=== PATIENT | male | born 1990 | race Caucasian/White ===

== ENCOUNTER 2020-09-15 17:42 | Emergency (ER) | payer OTHER ==
[2020-09-15 17:48] VITALS: BP 155/114; PULSE 82; RESP 18; TEMP 97.9
--- NOTE | 2020-09-15 18:16 | ED ---
General Adult HPI - General Chief complaint: Psychiatric Symptoms Stated complaint: EPS eval Time Seen by Provider: 09/15/20 17:45 Source: patient, RN notes reviewed, old records reviewed Mode of arrival: ambulatory Limitations: no limitations - History of Present Illness Initial comments: This is a 30-year-old male presents emergency department because his mother states over the last few days she's becoming more more depressed patient however is not suicidal or homicidal. Patient states he does not want hurt himself. Mom states last night he started to hallucinate and he was concerned that people were after him. He was walking into his mother's room concerned that one of the family members may have been hurt or diarrhea. Patient states she saw remembers this but he was extremely tired so is not sure. Patient states she has been sleeping well lately. Patient states he become much more depressed now that his daughter's birthday. Was a couple of days ago and he hasn't seen an 8 months. Patient denies any physical complaints today. Patient denies headache patient denies numbness weakness. Patient denies any recent fever chills or cough. - Related Data Home Medications Medication Instructions Recorded Confirmed No Known Home Medications 09/15/20 09/15/20 Allergies Allergy/AdvReac Type Severity Reaction Status Date / Time No Known Allergies Allergy Verified 09/15/20 19:23 Review of Systems ROS Statement: Those systems with pertinent positive or pertinent negative responses have been documented in the HPI. ROS Other: All systems not noted in ROS Statement are negative. Past Medical History Additional Past Medical History / Comment(s): heart murmur History of Any Multi-Drug Resistant Organisms: None Reported Past Surgical History: No Surgical Hx Reported Past Psychological History: No Psychological Hx Reported Smoking Status: Current every day smoker Past Alcohol Use History: Occasional Past Drug Use History: Marijuana General Exam - General Exam Comments Initial Comments: GENERAL: Patient is well-developed and well-nourished. Patient is nontoxic and well- hydrated and is in no acute distress. ENT: Neck is soft and supple. No significant lymphadenopathy is noted. Oropharynx is clear. Moist mucous membranes. Neck has full range of motion without eliciting any pain. EYES: The sclera were anicteric and conjunctiva were pink and moist. Extraocular movements were intact and pupils were equal round and reactive to light. Eyelids were unremarkable. PULMONARY: Unlabored respirations. Good breath sounds bilaterally. No audible rales rhonchi or wheezing was noted. CARDIOVASCULAR: There is a regular rate and rhythm without any murmurs gallops or rubs. ABDOMEN: Soft and nontender with normal bowel sounds. SKIN: Skin is clear with no lesions or rashes and otherwise unremarkable. NEUROLOGIC: Patient is alert and oriented x3. Cranial nerves II through XII are grossly intact. Motor and sensory are also intact. Normal speech, volume and content. Symmetrical smile. MUSCULOSKELETAL: Normal extremities with adequate strength and full range of motion. No lower extremity swelling or edema. No calf tenderness. LYMPHATICS: No significant lymphadenopathy is noted PSYCHIATRIC: Patient states he's just very side because of his inability to see his daughter. Patient doesn't really remember hallucinating last night but his mother confirms that he was. Limitations: no limitations Course Vital Signs 09/15/20 17:43 Temperature 97.9 F Pulse Rate 82 Respiratory 18 Rate Blood Pressure 155/114 O2 Sat by Pulse 98 Oximetry Medical Decision Making - Medical Decision Making EPS evaluated the patient and determined the patient go home and coordination with Dr. Nguyễn - Lab Data Result diagrams: 09/15/20 18:17 09/15/20 18:17 Lab Results 09/15/20 09/15/20 09/15/20 Range/Units 18:17 18:17 19:03 WBC 14.0 H (3.8-10.6) k/uL RBC 5.59 (4.30-5.90) m/uL Hgb 17.7 H (13.0-17.5) gm/dL Hct 51.3 (39.0-53.0) % MCV 91.9 (80.0-100.0) fL MCH 31.6 (25.0-35.0) pg MCHC 34.4 (31.0-37.0) g/dL RDW 12.2 (11.5-15.5) % Plt Count 198 (150-450) k/uL MPV 8.4 Neutrophils % 75 % Lymphocytes % 14 % Monocytes % 7 % Eosinophils % 2 % Basophils % 1 % Neutrophils # 10.5 H (1.3-7.7) k/uL Lymphocytes # 2.0 (1.0-4.8) k/uL Monocytes # 0.9 (0-1.0) k/uL Eosinophils # 0.3 (0-0.7) k/uL Basophils # 0.2 (0-0.2) k/uL Sodium 137 (137-145) mmol/L Potassium 3.6 (3.5-5.1) mmol/L Chloride 105 (98-107) mmol/L Carbon Dioxide 24 (22-30) mmol/L Anion Gap 8 mmol/L BUN 10 (9-20) mg/dL Creatinine 0.86 (0.66-1.25) mg/dL Est GFR (CKD-EPI)AfAm >90 (>60 ml/min/1.73 sqM) Est GFR (CKD-EPI)NonAf >90 (>60 ml/min/1.73 sqM) Glucose 112 H (74-99) mg/dL Calcium 9.8 (8.4-10.2) mg/dL Total Bilirubin 0.7 (0.2-1.3) mg/dL AST 30 (17-59) U/L ALT 45 (4-49) U/L Alkaline Phosphatase 75 (38-126) U/L Total Protein 7.8 (6.3-8.2) g/dL Albumin 4.6 (3.5-5.0) g/dL Urine Opiates Screen Not Detected (NotDetected) Ur Oxycodone Screen Not Detected (NotDetected) Urine Methadone Screen Not Detected (NotDetected) Ur Propoxyphene Screen Not Detected (NotDetected) Ur Barbiturates Screen Not Detected (NotDetected) U Tricyclic Antidepress Not Detected (NotDetected) Ur Phencyclidine Scrn Not Detected (NotDetected) Ur Amphetamines Screen Not Detected (NotDetected) U Methamphetamines Scrn Not Detected (NotDetected) U Benzodiazepines Scrn Not Detected (NotDetected) Urine Cocaine Screen Not Detected (NotDetected) U Marijuana (THC) Screen Detected H (NotDetected) Disposition Clinical Impression: Depression, Sleep deprivation Disposition: HOME SELF-CARE Condition: Good Instructions (If sedation given, give patient instructions): Depression (ED) Is patient prescribed a controlled substance at d/c from ED?: No Referrals: Cornelius Panchal DO [Primary Care Provider] - 1-2 days Time of Disposition: 20:33
[2020-09-15 18:32] LABS: Basophils # (A) 0.2 k/uL (0-0.2); Basophils % (A) 1 %; Eosinophils # (A) 0.3 k/uL (0-0.7); Eosinophils % (A) 2 %; HCT 51.3 % (39.0-53.0); HGB 17.7 gm/dL (13.0-17.5); Lymphocytes % (A) 14 %; MCH 31.6 pg (25.0-35.0); MCHC 34.4 g/dL (31.0-37.0); MCV 91.9 fL (80.0-100.0); Mean Platelet Volume 8.4; Monocytes # (A) 0.9 k/uL (0-1.0); Monocytes % (A) 7 %; Neutrophils # (A) 10.5 k/uL (1.3-7.7); Neutrophils % (A) 75 %; Platelet Count 198 k/uL (150-450); RBC 5.59 m/uL (4.30-5.90); RDW 12.2 % (11.5-15.5)
[2020-09-15 18:43] LABS: ALT 45 U/L (4-49); AST 30 U/L (17-59); African American GFR (CKD) >90 (>60 ml/min/1.73 sqM); Albumin 4.6 g/dL (3.5-5.0); Alkaline Phosphatase 75 U/L (38-126); Anion Gap 8 mmol/L; Blood Urea Nitrogen 10 mg/dL (9-20); Calcium 9.8 mg/dL (8.4-10.2); Carbon Dioxide 24 mmol/L (22-30); Chloride 105 mmol/L (98-107); Glucose 112 mg/dL (74-99); Non-African American GFR(CKD) >90 (>60 ml/min/1.73 sqM); Potassium 3.6 mmol/L (3.5-5.1); Sodium 137 mmol/L (137-145); Total Bilirubin 0.7 mg/dL (0.2-1.3); Total Protein 7.8 g/dL (6.3-8.2)
--- NOTE | 2020-09-15 18:52 | CT ---
EXAMINATION TYPE: CT brain wo con DATE OF EXAM: 09/15/2020 COMPARISON: None. HISTORY: Hallucinations CT DLP: 1099.4 mGycm. Automated Exposure Control for Dose Reduction was Utilized. TECHNIQUE: CT scan of the head is performed without contrast. FINDINGS: There is no acute intracranial hemorrhage, mass effect, or midline shift identified. The ventricles and sulci are within normal limits in size. The globes are intact. Visualized sinuses de monstrate moderate size right maxillary mucus retention cyst. IMPRESSION: No acute intracranial hemorrhage, mass effect, or midline shift is seen.
[2020-09-15 19:34] LABS: Amphetamine Screen,Urine Not Detected (NotDetected); Barbiturate Screen,Urine Not Detected (NotDetected); Benzodiazepines Screen,Urine Not Detected (NotDetected); Cocaine Screen,Urine Not Detected (NotDetected); Methadone Screen, Urine Not Detected (NotDetected); Opiate Screen,Urine Not Detected (NotDetected); Oxycodone Screen, Urine Not Detected (NotDetected); Phencyclidine Screen,Urine Not Detected (NotDetected); Tricyclic Antidepressant,Urine Not Detected (NotDetected); Urn Cannabinoid Scrn Detected (NotDetected)
== END 2020-09-15 21:05 | disposition home or self-care (01) ==
LOC: EC 17:42
DX: F32.9 Major depressive disorder, single episode, unspecified (principal); Z72.820 Sleep deprivation; R44.3 Hallucinations, unspecified; F17.200 Nicotine dependence, unspecified, uncomplicated
CPT/HCPCS: 36415; 70450; 80053; 80306; 82075; 85025; 99285

== ENCOUNTER 2020-09-18 14:55 | Inpatient (IN) | payer MEDICAID, OTHER ==
--- NOTE | 2020-09-18 16:21 | ED ---
Psych HPI - General Chief Complaint: Psychiatric Symptoms Stated Complaint: Mental health Time Seen by Provider: 09/18/20 15:31 Source: patient, RN notes reviewed, old records reviewed Mode of arrival: ambulatory Limitations: no limitations - History of Present Illness Initial Comments: This is a 30-year-old male who presents to the ER for evaluation patient in regards to psychiatric illness suicidal thoughts and psychosis. Patient's brought in by PD under petition for evaluation MD Complaint: suicidal ideation, feels depressed, altered mental status -: unknown Associated Psychiatric Symptoms: none History of same: No Quality: constant Improves With: none Worsens With: none Associated Symptoms: denies other symptoms Treatments Prior to Arrival: placed on mental health hold If Self Harm: admits thoughts of self harm - Related Data Home Medications Medication Instructions Recorded Confirmed No Known Home Medications 09/15/20 09/18/20 Allergies Allergy/AdvReac Type Severity Reaction Status Date / Time No Known Allergies Allergy Verified 09/18/20 16:20 Review of Systems ROS Statement: Those systems with pertinent positive or pertinent negative responses have been documented in the HPI. ROS Other: All systems not noted in ROS Statement are negative. Past Medical History Additional Past Medical History / Comment(s): heart murmur History of Any Multi-Drug Resistant Organisms: None Reported Past Surgical History: No Surgical Hx Reported Past Psychological History: No Psychological Hx Reported Smoking Status: Current every day smoker Past Alcohol Use History: Occasional Past Drug Use History: Marijuana General Exam Limitations: no limitations General appearance: alert, in no apparent distress Head exam: Present: atraumatic, normocephalic, normal inspection Eye exam: Present: normal appearance, PERRL, EOMI. Absent: scleral icterus, c onjunctival injection, periorbital swelling ENT exam: Present: normal exam, mucous membranes dry, mucous membranes moist Neck exam: Present: normal inspection. Absent: tenderness, meningismus, lymphadenopathy Respiratory exam: Present: normal lung sounds bilaterally. Absent: respiratory distress, wheezes, rales, rhonchi, stridor Cardiovascular Exam: Present: normal rhythm, tachycardia, normal heart sounds. Absent: systolic murmur, diastolic murmur, rubs, gallop, clicks GI/Abdominal exam: Present: soft, normal bowel sounds. Absent: distended, tenderness, guarding, rebound, rigid Extremities exam: Present: normal inspection, full ROM, normal capillary refill. Absent: tenderness, pedal edema, joint swelling, calf tenderness Back exam: Present: normal inspection Neurological exam: Present: alert, oriented X3, CN II-XII intact Psychiatric exam: Present: normal affect, normal mood Skin exam: Present: warm, dry, intact, normal color. Absent: rash Course Vital Signs 09/18/20 09/18/20 15:10 16:26 Temperature 100.6 F H 99 F Pulse Rate 123 H 111 H Respiratory 20 18 Rate Blood Pressure 135/106 158/104 O2 Sat by Pulse 98 98 Oximetry - Reevaluation(s) Reevaluation #1: 09/18/20 18:14 Medical record is reviewed Reevaluation #2: 09/18/20 18:14 Patient seen and evaluated by psychiatry here in the ER after being made medically clear Medical Decision Making - Medical Decision Making 30 male DF for evaluation will admit for psychiatric evaluation and treatment - Lab Data Lab Results 09/18/20 Range/Units 16:34 Coronavirus (PCR) Not Detected (Not Detectd) Disposition Clinical Impression: Depression, Acute psychosis, Acute anxiety Disposition: TRANSFER TO PSYCH HOSP/UNIT Condition: Fair Is patient prescribed a controlled substance at d/c from ED?: No Referrals: Cornelius Panchal DO [Primary Care Provider] - 1-2 days
[2020-09-18] MEDS ORDERED: IBUPROFEN 800 MG TAB PO STA (16:22)
[2020-09-18] MEDS ORDERED: LORazepam 1 MG TAB PO STA ×2 (16:22→18:06)
[2020-09-18] MEDS ORDERED: ACETAMINOPHEN TAB 500 MG TAB PO STA (16:22)
[2020-09-18 18:16] LABS: Amphetamine Screen,Urine Not Detected (NotDetected); Barbiturate Screen,Urine Not Detected (NotDetected); Benzodiazepines Screen,Urine Not Detected (NotDetected); Cocaine Screen,Urine Not Detected (NotDetected); Methadone Screen, Urine Not Detected (NotDetected); Opiate Screen,Urine Not Detected (NotDetected); Oxycodone Screen, Urine Not Detected (NotDetected); Phencyclidine Screen,Urine Not Detected (NotDetected); Tricyclic Antidepressant,Urine Not Detected (NotDetected); Urn Cannabinoid Scrn Detected (NotDetected)
[2020-09-18 18:34] LABS: Basophils # (A) 0.1 k/uL (0-0.2); Basophils % (A) 0 %; Eosinophils # (A) 0.3 k/uL (0-0.7); Eosinophils % (A) 2 %; HCT 53.1 % (39.0-53.0); HGB 17.8 gm/dL (13.0-17.5); Lymphocytes # (A) 2.4 k/uL (1.0-4.8); Lymphocytes % (A) 15 %; MCHC 33.5 g/dL (31.0-37.0); MCV 92.8 fL (80.0-100.0); Mean Platelet Volume 8.9; Monocytes # (A) 0.9 k/uL (0-1.0); Monocytes % (A) 6 %; Neutrophils # (A) 12.1 k/uL (1.3-7.7); Neutrophils % (A) 76 %; Platelet Count 198 k/uL (150-450); RBC 5.73 m/uL (4.30-5.90); RDW 12.5 % (11.5-15.5); WBC 15.9 k/uL (3.8-10.6)
[2020-09-18 18:43] LABS: Appearance,Urine Clear (Clear); Bilirubin,Urine Negative (Negative); Blood,Urine Negative (Negative); Color,Urine Yellow; Glucose,Urine (UA) Negative (Negative); Ketones,Urine 1+ (Negative); Leukocyte Esterase,Urine Negative (Negative); Nitrite,Urine Negative (Negative); Protein,Urine Negative (Negative); Specific Gravity,Urine 1.014 (1.001-1.035)
[2020-09-18 18:48] LABS: ALT 45 U/L (4-49); AST 36 U/L (17-59); African American GFR (CKD) >90 (>60 ml/min/1.73 sqM); Albumin 4.4 g/dL (3.5-5.0); Alkaline Phosphatase 73 U/L (38-126); Anion Gap 10 mmol/L; Blood Urea Nitrogen 10 mg/dL (9-20); C Reactive Protein 6.5 mg/L (<10.0); Calcium 9.5 mg/dL (8.4-10.2); Carbon Dioxide 22 mmol/L (22-30); Chloride 102 mmol/L (98-107); Glucose 103 mg/dL (74-99); LDH 644 U/L (313-618); Magnesium 1.8 mg/dL (1.6-2.3); Non-African American GFR(CKD) >90 (>60 ml/min/1.73 sqM); Potassium 3.6 mmol/L (3.5-5.1); Sodium 134 mmol/L (137-145); Total Protein 7.5 g/dL (6.3-8.2)
--- NOTE | 2020-09-18 19:21 | XR ---
EXAMINATION TYPE: XR chest 2V DATE OF EXAM: 09/18/2020 COMPARISON: NONE HISTORY: Fever TECHNIQUE: 2 views FINDINGS: Heart and mediastinum are normal. Lungs are clear. Diaphragm is normal. Bony thorax appears normal. IMPRESSION: Normal chest.
[2020-09-18] MEDS ORDERED: MAG HYDROX/AL HYDROX/SIMETH 30 ML CUP PO PRN (19:41)
[2020-09-18] MEDS ORDERED: MAGNESIUM HYDROXIDE 2,400 MG/10 ML CUP PO PRN (19:41)
[2020-09-18] MEDS ORDERED: HALOPERIDOL LACTATE 5 MG/ML 1 ML VIAL IM PRN (19:51)
[2020-09-18] MEDS ORDERED: diphenhydrAMINE 50 MG/ML 1 ML VIAL IM PRN (19:52)
[2020-09-18] MEDS ORDERED: LORazepam 2 MG/ML INJ IM PRN (21:07)
[2020-09-18] MEDS ORDERED: LORazepam 2 MG/ML INJ IM SCH (22:00)
[2020-09-19] MEDS: LORazepam 1 MG TAB PO PRN (05:04)
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
[2020-09-19] MEDS: NICOTINE 21MG/24HR PATCH TRANSDERM SCH (10:32)
[2020-09-19] MEDS: PALIPERIDONE 3 MG TAB.ER.24 PO SCH (20:56)
[2020-09-19] MEDS: ACETAMINOPHEN TAB 325 MG TAB PO PRN (20:57)
[2020-09-19] MEDS ORDERED: MELATONIN 5 MG TABLET PO SCH (21:00)
--- NOTE | 2020-09-19 22:15 | P.CONS ---
History of Present Illness - History of Present Illness This is a pleasant 50 years old male with no significant past medical history, Who was admitted to the mental health unit for signs and symptoms of psychosis, with cannabis abuse is suspected Medical consult was requested for routine medical management. Patient was seen in walking the hallway, he denies chest pain or dyspnea, no abdominal pain, no nausea vomiting, no change in urine or bowel habits. No fever. He is complaining of from his right foot with some scratching and little redness, he states that he hurt his foot a few days ago without specification of how this happened, there is suspicion for mild cellulitis with no open wound or discharge. I offered to give him Keflex however patient declined "I don't like pills", he does not want to take any pills, risks and benefits are explained, as an alternative he agreed for topical antibiotic, patient is counseled to seek medical attention if he has worsening infection and he agrees. Patient has any current toe status post the removal on his right first toe, he wants to follow up with his assessor but he does not have one, he agrees to suggest S for him upon discharge, On admission he has low-grade fever of 100.6 Yesterday in the afternoon, since then he has no more fever. He is a slightly tachycardic and 100 open wound. Her still vitals stable. Labs showed leukocytosis of 15.6. Urine drug screen is positive for marijuana. Coronavirus not detected. Urine analysis is negative Review of Systems CONSTITUTIONAL: No fever, no malaise, no fatigue. HEENT: No recent visual problems or hearing problems. Denied any sore throat. CARDIOVASCULAR: No orthopnea, PND, no palpitations, no syncope. PULMONARY: No shortness of breath, no cough, no hemoptysis. GASTROINTESTINAL: No diarrhea, no nausea, no vomiting, no abdominal pain. Normoactive bowel sounds. NEUROLOGICAL: No headaches, no weakness, no numbness. HEMATOLOGICAL: Denies any bleeding or petechiae. GENITOURINARY: Denies any burning micturition, frequency, or urgency. MUSCULOSKELETAL/RHEUMATOLOGICAL: Denies any joint pain, swelling, or any muscle pain. ENDOCRINE: Denies any polyuria or polydipsia. Past Medical History Additional Past Medical History / Comment(s): heart murmur History of Any Multi-Drug Resistant Organisms: None Reported Past Surgical History: No Surgical Hx Reported Past Psychological History: No Psychological Hx Reported Smoking Status: Current every day smoker Past Alcohol Use History: Occasional Past Drug Use History: Marijuana Medications and Allergies Home Medications Medication Instructions Recorded Confirmed Type No Known Home Medications 09/15/20 09/18/20 History Allergies Allergy/AdvReac Type Severity Reaction Status Date / Time No Known Allergies Allergy Verified 09/18/20 16:20 Physical Exam Vitals: Vital Signs Temp Pulse Pulse Resp BP BP Pulse Ox 09/19/20 17:52 98.4 F 09/19/20 12:58 96.9 F L 09/19/20 05:22 96.4 F L 104 H 18 148/100 09/18/20 20:39 98.5 F 101 H 18 124/79 95 09/18/20 19:45 98.5 F 96 16 130/77 96 GENERAL: The patient is alert and oriented x3, not in any acute distress. Well developed, well nourished. HEENT: Pupils are round and equally reacting to light. EOMI. No scleral icterus. No conjunctival pallor. Normocephalic, atraumatic. No pharyngeal erythema. No thyromegaly. CARDIOVASCULAR: S1 and S2 present. No murmurs, rubs, or gallops. PULMONARY: Chest is clear to auscultation, no wheezing or crackles. ABDOMEN: Soft, nontender, nondistended, normoactive bowel sounds. No palpable organomegaly. MUSCULOSKELETAL: No joint swelling or deformity. -EXTREMITIES: No cyanosis, clubbing, or pedal edema. Some mild redness and scratching of the right foot NEUROLOGICAL: Gross neurological examination did not reveal any focal deficits. SKIN: No rashes. No petechiae Results CBC & Chem 7: 09/18/20 18:27 09/18/20 18:27 Labs: Abnormal Lab Results - Last 24 Hours (Table) 09/18/20 09/18/20 09/18/20 Range/Units 16:34 16:34 18:27 WBC 15.9 H (3.8-10.6) k/uL Hgb 17.8 H (13.0-17.5) gm/dL Hct 53.1 H (39.0-53.0) % Neutrophils # 12.1 H (1.3-7.7) k/uL Sodium (137-145) mmol/L Glucose (74-99) mg/dL Lactate Dehydrogenase (313-618) U/L Urine Ketones 1+ H (Negative) U Marijuana (THC) Screen Detected H (NotDetected) 09/18/20 Range/Units 18:27 WBC (3.8-10.6) k/uL Hgb (13.0-17.5) gm/dL Hct (39.0-53.0) % Neutrophils # (1.3-7.7) k/uL Sodium 134 L (137-145) mmol/L Glucose 103 H (74-99) mg/dL Lactate Dehydrogenase 644 H (313-618) U/L Urine Ketones (Negative) U Marijuana (THC) Screen (NotDetected) Assessment and Plan Assessment: -Non-compliance to therapy, patient was counseled however he still refuses oral antibiotics -Possible right foot cellulitis, patient declined to take oral antibiotics. Patient decreased topical antibiotics, patient was started on bacitracin. Chest x-ray: Normal per radiologist -Leukocytosis and mild fever on admission, most likely secondary to right foot cellulitis, patient declined systemic antibiotic, if patients changes his mind then we can start him on Keflex 500 mg 3 times a day for 10 days with close monitoring. staff were Informed -substance abuse with canabis, patient is counseled -Psychosis and other sac illnesses, management as per psychiatrist primary team - DVT prophylaxis, patient is mobile besides he refused anticoagulation, mobility was the patient at lower risk of thrombosis We recommend patient follow up with his primary care doctor within 1 week after discharge with Dr. Panchal and he agrees Thank you for consulting us, please contact us if the patient changes his mind and he agrees to take oral antibiotics for his right foot infection Luis recommendation were discussed with the bedside nurse and nurse communication was placed with the same
[2020-09-19] MEDS: BACITRACIN OINT 1 EACH PACKET TOPICAL SCH (22:34)
[2020-09-20 00:07] LABS: Urine Alcohol Negative (Negative); Urine Barbiturate Negative (Negative); Urine Cocaine Negative (Negative); Urine Methadone Negative (Negative); Urine Opiates Negative (Negative); Urine Phencyclidine Negative (Negative)
[2020-09-20] MEDS: BACITRACIN OINT 1 EACH PACKET TOPICAL SCH ×4 (08:52→21:05)
[2020-09-20] MEDS: CEPHALEXIN 500 MG CAP PO SCH ×3 (08:52→21:03)
[2020-09-20] MEDS: LORazepam 1 MG TAB PO PRN ×2 (08:53→16:52)
[2020-09-20] MEDS: NICOTINE 21MG/24HR PATCH TRANSDERM SCH (08:56)
[2020-09-20] MEDS ORDERED: diphenhydrAMINE 25 MG CAP PO PRN (10:12)
--- NOTE | 2020-09-20 10:20 | P.PN ---
Progress Note - Text Progress Note Date: 09/20/20 Interval History: Patient was seen attending group this morning and was directable and agreeable to speak with typewriter aligner in the office. Patient continues to appear to have poor hygiene and grooming today. He continues to be mildly tearful at times when talking about his family and missing his mother. He continues to be focused on discharge and continues to have poor insight and judgment. He continues to make illogical statements and loose associations at times. He referred to the government and the courts "being after me" and forcing him to take medications. She was preoccupied with discharge and asked when his mother can come pick him up. Patient was also speaking in a childlike manner today. He claims that his mood is continuing to feel depressed. He states that he did not sleep well last night. At this time patient denies any suicidal or homical ideations, intent or plan. Patient denies any auditory, visual hallucinations. Patient denies any side effects from the medications and has been compliant with meds. Mental Status Exam: General Appearance: Patient appears to be wellbuilt, stated age is alert, uncooperative and childlike at times. Patient appears to have poor hygiene and grooming. Long cheney and hair. Behavior: Patient is seated without any agitated behavior. Paranoia Speech: Patient's speech is fluent and nonpressured. Mood/Affect: Patient reports their mood is depressed, affect is congruent and tearful at times. Suicidality/Homicidality: Patient denies having any homicidal ideation intent or plan. Denies any suicidal ideations intent or plan Perceptions: Patient denies any visual hallucinations and denies any auditory hallucinations Though content/process: Patient is perseverating on discharge, minimizing his symptoms. Bizarre at times and illogical. Memory and concentration: AOX3, grossly intact for the purposes of this session Judgment and insight: poor, improving mildly Assessment Psychosis unspecified, rule out secondary to cannabis abuse Cannabis use disorder Nicotine dependence Plan: -Patient continues to meet criteria for inpatient psychiatric admission for symptom stabilization and safety. Patient has not signed adult voluntary form and medication consent and was placed in patient's chart. -Medications: Continue with paliperidone by mouth 3 mg daily at bedtime for psychosis/mood stabilization. Increased melatonin to 10 mg daily at bedtime for insomnia. Added Zoloft 50 mg daily for mood/anxiety. -When necessary Ativan and Haldol for agitation/aggression. -NRT - nicotine patch -SW on board for discharge planning. Encouraged the patient to participate in milieu. Will await deferral and court hearing date.
[2020-09-20] MEDS: SERTRALINE 50 MG TAB PO SCH (10:38)
[2020-09-20] MEDS: PALIPERIDONE 3 MG TAB.ER.24 PO SCH (21:03)
[2020-09-20] MEDS: MELATONIN 5 MG TABLET PO SCH (21:04)
[2020-09-21] MEDS: LORazepam 1 MG TAB PO PRN (09:07)
[2020-09-21] MEDS: CEPHALEXIN 500 MG CAP PO SCH ×3 (09:07→22:05)
[2020-09-21] MEDS: SERTRALINE 50 MG TAB PO SCH (09:07)
[2020-09-21] MEDS: BACITRACIN OINT 1 EACH PACKET TOPICAL SCH ×4 (09:08→20:32)
[2020-09-21] MEDS: NICOTINE 21MG/24HR PATCH TRANSDERM SCH (09:08)
[2020-09-21 09:51] LABS: Basophils % (A) 1 %; Eosinophils # (A) 0.1 k/uL (0-0.7); Eosinophils % (A) 2 %; HCT 49.1 % (39.0-53.0); HGB 17.2 gm/dL (13.0-17.5); Lymphocytes # (A) 1.5 k/uL (1.0-4.8); Lymphocytes % (A) 18 %; MCH 32.2 pg (25.0-35.0); MCHC 35.1 g/dL (31.0-37.0); MCV 91.7 fL (80.0-100.0); Mean Platelet Volume 9.5; Monocytes # (A) 0.5 k/uL (0-1.0); Monocytes % (A) 6 %; Neutrophils # (A) 6.2 k/uL (1.3-7.7); Neutrophils % (A) 73 %; Platelet Count 173 k/uL (150-450); RBC 5.36 m/uL (4.30-5.90); RDW 11.7 % (11.5-15.5); WBC 8.4 k/uL (3.8-10.6)
--- NOTE | 2020-09-21 13:46 | P.PN ---
Progress Note - Text Progress Note Date: 09/21/20 Clinical Problems: Unspecified psychotic disorder, rule out cannabis induced psychotic disorder, rule out affective psychosis or schizophrenia, cannabis use disorder, nicotine use disorder Interim history: I reviewed the medical record and interviewed the patient. He is irritable and uncooperative. He believes that he is a victim of of a misunderstanding and should not be on the psychiatric unit. He denied problems or concerns and specifically denied that he is having suicidal thoughts. He became increasingly angry as I attempted to explain the involuntary hospitalization process. He interrupted my explanation and was verbally hostile. He expressed a belief that now he feels that he is a victim of persecution by "us" and the government. Mental status exam: He presented as a tall casually groomed 30-year-old male who is irritable and uncooperative. He made eye contact and did not appear to attend to the interview. He showed no abnormality of psychomotor activity. His speech was spontaneous and consistent with his mood. His affect was irritable, abrupt and angry. He denied suicidal ideation or wishes. He was paranoid and suspicious and expressed overvalued ideas and vague paranoid thoughts regarding the reasons for this hospitalization. His thinking was concrete and not fully coherent, logical and goal directed. He did not appear to be responding to internal stimuli. Assessment: He is irritable, argumentative and disorganized. He has no insight or understanding of the need for his psychiatric hospitalization and would not allow me to explain the involuntary hospitalization process. Plan: Continue inpatient treatment. Continue 6 precautions. Continue current medications-paliperidone 3 mg daily, melatonin 10 mg at bedtime and Zoloft 50 mg daily. Evaluate clinical status response to treatment daily basis.
[2020-09-21] MEDS: MELATONIN 5 MG TABLET PO SCH (20:33)
[2020-09-21] MEDS: PALIPERIDONE 3 MG TAB.ER.24 PO SCH (20:33)
[2020-09-22] MEDS: haloperidoL 5 MG TAB PO PRN ×2 (00:05→06:06)
[2020-09-22] MEDS: LORazepam 1 MG TAB PO PRN (06:06)
[2020-09-22] MEDS: CEPHALEXIN 500 MG CAP PO SCH ×4 (08:49→21:43)
[2020-09-22] MEDS: BACITRACIN OINT 1 EACH PACKET TOPICAL SCH ×4 (08:49→21:42)
[2020-09-22] MEDS: NICOTINE 21MG/24HR PATCH TRANSDERM SCH ×2 (08:49→08:55)
[2020-09-22] MEDS: SERTRALINE 50 MG TAB PO SCH (08:49)
--- NOTE | 2020-09-22 13:24 | P.PN ---
Progress Note - Text Progress Note Date: 09/22/20 Clinical Problems: Unspecified psychotic disorder, rule out cannabis induced psychotic disorder, rule out affective psychosis or schizophrenia, cannabis use disorder, nicotine use disorder He was sedated and unwilling to engage in interview. He received 1 mg of Ativan and 5 mg this morning for increasing agitation, paranoia and irritability. He accused staff of lying to her and changing the time on the hospital clocks. He would not drink the water provided to staff and will drink out of his car. He isn't compliant with initial doses of Invega. Mental status exam: He presented as a tall casually groomed 30-year-old male who was sedated and minimally arousable He did not make eye contact and did not appear to attend to the interview. He showed no abnormality of psychomotor activity. Assessment: Remains paranoid and irritable He has no insight or understanding of the need for his psychiatric hospitalization and would not allow me to explain the involuntary hospitalization process. Plan: Continue inpatient treatment. Continue safety precautions. Probate hearing for involuntary hospitalization pending. Continue current medications- paliperidone 3 mg daily, melatonin 10 mg at bedtime and Zoloft 50 mg daily. When necessary Ativan and/or alcohol for agitation acute psychosis. Evaluate clinical status response to treatment daily basis.
[2020-09-22] MEDS: PALIPERIDONE 3 MG TAB.ER.24 PO SCH (21:43)
[2020-09-22] MEDS: MELATONIN 5 MG TABLET PO SCH (21:43)
--- NOTE | 2020-09-23 08:11 | P.PN ---
Subjective Addendum I came to reexamine the patient, patient was lying in bed fully dressed sleepy I talked to him but he refused me to talk to him or to examine him, including refusing to examine his feet, I told the patient if he changes his mind to call us back and he agrees Objective - Vital Signs Vital signs: Vital Signs Temp 97.9 F 09/23/20 06:29 Pulse 113 H 09/23/20 06:29 Resp 17 09/22/20 06:30 BP 153/95 09/23/20 06:29 Pulse Ox 97 09/22/20 06:30 Intake & Output 09/22/20 09/23/20 09/23/20 18:59 06:59 18:59 Weight 106.5 kg - Labs CBC & Chem 7: 09/21/20 09:02 09/18/20 18:27
[2020-09-23] MEDS: CEPHALEXIN 500 MG CAP PO SCH ×3 (09:26→20:28)
[2020-09-23] MEDS: SERTRALINE 50 MG TAB PO SCH (09:26)
[2020-09-23] MEDS: BACITRACIN OINT 1 EACH PACKET TOPICAL SCH ×4 (09:26→20:28)
[2020-09-23] MEDS: NICOTINE 21MG/24HR PATCH TRANSDERM SCH (09:26)
--- NOTE | 2020-09-23 09:48 | P.PN ---
Progress Note - Text Progress Note Date: 09/23/20 Interval History: Patient was seen wandering the hallways after receiving medications this morning and was directable and agreeable to speak with display card writer in the office. Patient continues to appear to have poor hygiene and grooming however this has been improving mildly. He continues to make bizarre statements at times and continues to endorse paranoia. Over the weekend he believed that nursing staff was out to get him and received 2 prn doses of Haldol IM. When asked more about his paranoia patient has a difficult time elaborating and has mainly poverty of content. He was not goal oriented and fixated on discharge. He continues to show poor insight and judgment. He continues to make illogical statements and loose associations at times. Patient has been taking medications on the unit. When talking about his mother patient cried and states that "I miss her". Patient continues to speak in a childlike manner today. He claims that his mood is continuing to feel depressed. He states that he is able to sleep better last night. At this time patient denies any suicidal or homical ideations, intent or plan. Patient denies any auditory, visual hallucinations. Patient denies any side effects from the medications and has been compliant with meds. Mental Status Exam: General Appearance: Patient appears to be wellbuilt, stated age is alert, childlike at times. Patient appears to have poor hygiene and grooming, mildly improving. Long cheney and hair. Behavior: Patient is seated without any agitated behavior. Paranoia Speech: Patient's speech is fluent and nonpressured. Mood/Affect: Patient reports their mood is depressed, affect is congruent and tearful at times. Suicidality/Homicidality: Patient denies having any homicidal ideation intent or plan. Denies any suicidal ideations intent or plan Perceptions: Patient denies any visual hallucinations and denies any auditory hallucinations Though content/process: Patient is perseverating on discharge, minimizing his symptoms. Bizarre at times and illogical. Memory and concentration: AOX3, grossly intact for the purposes of this session Judgment and insight: poor Assessment Psychosis unspecified, rule out secondary to cannabis abuse Cannabis use disorder Nicotine dependence Plan: -Patient continues to meet criteria for inpatient psychiatric admission for symptom stabilization and safety. Patient has not signed adult voluntary form and medication consent and was placed in patient's chart. -Medications: Increased paliperidone by mouth 6 mg daily at bedtime for psychosis/mood stabilization. Continue with melatonin to 10 mg daily at bedtime for insomnia. Increased Zoloft 100 mg daily for mood/anxiety. -When necessary Ativan and Haldol for agitation/aggression. -NRT - nicotine patch -SW on board for discharge planning. Encouraged the patient to participate in milieu. Will await deferral and court hearing date. Last dialysis social worker to gather further collateral history today.
[2020-09-23] MEDS: haloperidoL 5 MG TAB PO PRN (14:01)
[2020-09-23] MEDS: LORazepam 1 MG TAB PO PRN (14:01)
[2020-09-23] MEDS: MELATONIN 5 MG TABLET PO SCH (20:25)
[2020-09-23] MEDS: PALIPERIDONE 6 MG TAB.ER.24 PO SCH (20:28)
[2020-09-24] MEDS: LORazepam 1 MG TAB PO PRN (07:33)
[2020-09-24] MEDS: BACITRACIN OINT 1 EACH PACKET TOPICAL SCH ×4 (07:33→21:22)
[2020-09-24] MEDS: CEPHALEXIN 500 MG CAP PO SCH ×3 (07:33→21:18)
[2020-09-24] MEDS: NICOTINE 21MG/24HR PATCH TRANSDERM SCH (08:03)
[2020-09-24] MEDS ORDERED: SERTRALINE 100 MG TAB PO SCH (09:00)
--- NOTE | 2020-09-24 10:15 | P.PN ---
Progress Note - Text Progress Note Date: 09/24/20 Interval History: Patient was seen sitting in on group this morning and was directable and agree able to speak with sign writer letterer or painter in the office. Patient was fairly slow to respond and was walking fairly slowly in the hallway. He continues to display poor insight and judgment and also continues to make bizarre statements and continues to endorse paranoia towards the staff. He claims that he was speaking with his mom yesterday and is continuing to feel worried about her. He believes that he was brought into the hospital because he and his mom were "depressed". Patient received an Ativan 1 mg by mouth this morning for anxiety. When asked more about his paranoia patient has a difficult time elaborating and has mainly poverty of content. Patient continues to be fixated on discharge and minimizing his symptoms. He claims that he was able to sleep better last night. Patient has been taking medications on the unit. Patient continues to speak in a childlike manner today. At this time patient denies any suicidal or homical ideations, intent or plan. Patient denies any auditory, visual hallucinations. Patient denies any side effects from the medications and has been compliant with meds. Interactive Designer spoke with patient's mother Naila at [phone] who spoke about patient's recent history of symptoms and how he was at his baseline over the summer until he quit his job during the pandemic. She states that for the past 2 weeks he has been displaying more bizarre behaviors at home paranoia and emotional instability. She claims that he has never been on psychiatric medications in the past. She states that he has been having a tough time dealing with not being able to see his daughter. She states that he mainly stays at home and smokes marijuana and plays video games. She also claimed that patient recently ordered some testosterone supplements online and has been taking them and also tried marijuana wax with his sister recently. Mental Status Exam: General Appearance: Patient appears to be wellbuilt, stated age is alert, childlike. Patient appears to have mildly improving hygiene and grooming, mildly improving. Long cheney and hair. Behavior: Patient is seated without any agitated behavior. Paranoia and suspiciousness Speech: Patient's speech is nonpressured. Monotone. Slow to respond Mood/Affect: Patient reports their mood is depressed, affect is congruent and constricted Suicidality/Homicidality: Patient denies having any homicidal ideation intent or plan. Denies any suicidal ideations intent or plan Perceptions: Patient denies any visual hallucinations and denies any auditory hallucinations Though content/process: Patient is perseverating on discharge, minimizing his symptoms. Bizarre at times and illogical. Endorsing paranoia. Memory and concentration: AOX3, grossly intact for the purposes of this session Judgment and insight: poor Assessment Psychosis unspecified, rule out secondary to cannabis abuse Cannabis use disorder Nicotine dependence Plan: -Patient continues to meet criteria for inpatient psychiatric admission for symptom stabilization and safety. Patient has not signed adult voluntary form and medication consent and was placed in patient's chart. -Medications: Continue with paliperidone by mouth 6 mg daily at bedtime for psyc hosis/mood stabilization. Continue with melatonin to 10 mg daily at bedtime for insomnia. Decreased Zoloft 50 mg daily for mood/anxiety. -When necessary Ativan and Haldol for agitation/aggression. -NRT - nicotine patch -SW on board for discharge planning. Encouraged the patient to participate in milieu. Patient will have deferral today with securities attorney.
[2020-09-24] MEDS: PALIPERIDONE 6 MG TAB.ER.24 PO SCH (21:18)
[2020-09-24] MEDS: MELATONIN 5 MG TABLET PO SCH (21:22)
[2020-09-25] MEDS: SERTRALINE 50 MG TAB PO SCH (07:49)
[2020-09-25] MEDS: BACITRACIN OINT 1 EACH PACKET TOPICAL SCH ×4 (07:49→22:58)
[2020-09-25] MEDS: CEPHALEXIN 500 MG CAP PO SCH ×3 (07:49→22:59)
[2020-09-25] MEDS: NICOTINE 21MG/24HR PATCH TRANSDERM SCH (07:49)
--- NOTE | 2020-09-25 08:26 | P.PN ---
Progress Note - Text Progress Note Date: 09/25/20 Interval History: Patient was seen wandering the hallways this morning and was directable and ag reeable to speak with marketing copywriter in the office. Patient appeared to have a blunted affect and approached the marketing copywriter in the hallway initially and asked him "are you a doctor? How long have you been her doctor?". Patient was fixated on being discharged today and continues to display very poor insight and judgment. He has very minimal insight into his mental illness and continues to also talk about his daughter that he misses and he hasn't seen. He also believes that somebody may be harming his family and is worried about them. He claims that he did not take his medications last night as "I don't need medications". He states that he signed the form with the attorney lawyer yesterday however when asked more about it he states that "he just made me signed a paper I don't know what it was". He claims that his mood is still depressed and patient continues to make bizarre comments and endorsing paranoia. When marketing copywriter asked about his medications patient said "scan me" and held out his wrist band. He claims that he was able to sleep better last night. At this time patient denies any suicidal or homical ideations, intent or plan. Patient denies any auditory, visual hallucinations. Patient did not take his nighttime medications yesterday however did take his Zoloft this morning. Mental Status Exam: General Appearance: Patient appears to be wellbuilt, stated age is alert, childlike, bizarre. Patient appears to have mildly improving hygiene and grooming, mildly improving. Long cheney and hair. Behavior: Patient is seated without any agitated behavior. Paranoia and suspiciousness. Bizarre Speech: Patient's speech is nonpressured. Monotone. Slow to respond Mood/Affect: Patient reports their mood is depressed, affect is congruent and constricted Suicidality/Homicidality: Patient denies having any homicidal ideation intent or plan. Denies any suicidal ideations intent or plan Perceptions: Patient denies any visual hallucinations and denies any auditory hallucinations Though content/process: Patient is perseverating on discharge, minimizing his symptoms. Bizarre at times and illogical. Endorsing paranoia. Memory and concentration: AOX3, grossly intact for the purposes of this session Judgment and insight: poor Assessment Psychosis unspecified, rule out secondary to cannabis abuse Cannabis use disorder Nicotine dependence Plan: -Patient continues to meet criteria for inpatient psychiatric admission for symptom stabilization and safety. Patient has not signed adult voluntary form and medication consent and was placed in patient's chart. -Medications: Switched paliperidone by mouth 3 mg twice a day for psychosis/mood stabilization. Continue with melatonin to 10 mg daily at bedtime for insomnia. Continue with Zoloft 50 mg daily for mood/anxiety. -When necessary Ativan and Haldol for agitation/aggression. -NRT - nicotine patch -SW on board for discharge planning. Encouraged the patient to participate in milieu. Patient signed deferral with attorney lawyer on 09/24/2020. If patient continues to be noncompliant with treatment then will need to file demand for hearing.
[2020-09-25] MEDS: PALIPERIDONE 3 MG TAB.ER.24 PO SCH ×2 (08:44→23:00)
[2020-09-25] MEDS: haloperidoL 5 MG TAB PO PRN (09:17)
[2020-09-25] MEDS: MELATONIN 5 MG TABLET PO SCH (22:59)
[2020-09-26] MEDS: NICOTINE 21MG/24HR PATCH TRANSDERM SCH (08:15)
[2020-09-26] MEDS: CEPHALEXIN 500 MG CAP PO SCH ×3 (08:15→20:45)
[2020-09-26] MEDS: SERTRALINE 50 MG TAB PO SCH (08:15)
[2020-09-26] MEDS: PALIPERIDONE 3 MG TAB.ER.24 PO SCH (08:15)
[2020-09-26] MEDS: BACITRACIN OINT 1 EACH PACKET TOPICAL SCH ×4 (08:16→20:46)
--- NOTE | 2020-09-26 09:23 | P.PN ---
Progress Note - Text Progress Note Date: 09/26/20 Interval History: Patient was seen sitting on his bed this morning and was directable and agreea ble to speak with proposal manager writer in the office. Patient continues to have a blunted affect and appears to be fairly sedated. Patient was appearing to cooperate as best as he could with the interview however continues to be monotone and constricted. He continues to perseverate on discharge and claims that "my mom wants me home". She continues to demonstrate poor insight into his condition and need for medications. He however has been taking his medications. He continues to endorse paranoia and saying bizarre things to proposal manager writer. He continues to ask proposal manager writer "scan me" and also asked proposal manager writer "I look like a human to you". He claims that his mood is still "not good" and patient continues to make bizarre comments. He claims that he was not able to sleep well last night. At this time patient denies any suicidal or homical ideations, intent or plan. Patient denies any auditory, visual hallucinations. Patient took his medications yesterday and this morning and denies any side effects except for sedation. Mental Status Exam: General Appearance: Patient appears to be wellbuilt, stated age is alert, childlike, bizarre. Patient appears to have mildly improving hygiene and grooming, mildly improving. Long cheney and hair. Behavior: Patient is seated without any agitated behavior. Paranoia and suspiciousness. Bizarre Speech: Patient's speech is nonpressured. Monotone. Slow to respond Mood/Affect: Patient reports their mood is "not good", affect is congruent and constricted Suicidality/Homicidality: Patient denies having any homicidal ideation intent or plan. Denies any suicidal ideations intent or plan Perceptions: Patient denies any visual hallucinations and denies any auditory hallucinations Though content/process: Patient is perseverating on discharge, minimizing his symptoms. Bizarre at times and illogical. Endorsing paranoia. Memory and concentration: AOX3, grossly intact for the purposes of this session Judgment and insight: poor Assessment Psychosis unspecified, rule out secondary to cannabis abuse Cannabis use disorder Nicotine dependence Plan: -Patient continues to meet criteria for inpatient psychiatric admission for symptom stabilization and safety. Patient has not signed adult voluntary form and medication consent and was placed in patient's chart. -Medications: At this time will discontinue paliperidone by mouth and replace with Prolixin 1.5 mg twice a day for psychosis. Continue with melatonin to 10 mg daily at bedtime for insomnia. Continue with Zoloft 50 mg daily for mood/anxiety. -When necessary Ativan and Haldol for agitation/aggression. -NRT - nicotine patch -SW on board for discharge planning. Encouraged the patient to participate in milieu. Patient signed deferral with commercial real estate attorney on 09/24/2020. If patient continues to be noncompliant with treatment then will need to file demand for hearing.
[2020-09-26 14:42] VITALS: BMI 30.9
[2020-09-26] MEDS: MELATONIN 5 MG TABLET PO SCH (20:45)
[2020-09-27] MEDS: BACITRACIN OINT 1 EACH PACKET TOPICAL SCH ×4 (07:58→20:13)
[2020-09-27] MEDS: NICOTINE 21MG/24HR PATCH TRANSDERM SCH (07:58)
[2020-09-27] MEDS: CEPHALEXIN 500 MG CAP PO SCH (07:59)
[2020-09-27] MEDS: SERTRALINE 50 MG TAB PO SCH (07:59)
[2020-09-27] MEDS: LORazepam 1 MG TAB PO PRN (08:00)
--- NOTE | 2020-09-27 09:43 | P.PN ---
Progress Note - Text Progress Note Date: 09/27/20 Interval History: Patient was seen laying down this morning in his bed and was directable and ag reeable to speak with editorial writer in the office. Patient continues to have a blunted affect today however appears to be less sedated. He appears to have mild improvement in terms of his thought process and thought content. He did not endorse as much paranoia as yesterday and claims that he has been talking to his mom. He continues to display poor insight and judgment as to why he is in the hospital and his need for treatment. He continues to focus on discharge. He spoke about ordering male enhancement supplements online and claims that he has been taking them for the past 3 months however states that he stopped taking them. He has been taking his medications. Patient appears to be less bizarre today. He claims that he was not able to sleep well last night. At this time patient denies any suicidal or homical ideations, intent or plan. Patient denies any auditory, visual hallucinations. Patient took his medications yesterday and this morning and denies any side effects except for sedation. Mental Status Exam: General Appearance: Patient appears to be wellbuilt, stated age is alert, childlike, improving. Patient appears to have mildly improving hygiene and grooming, mildly improving. Long cheney and hair. Behavior: Patient is seated without any agitated behavior. Paranoia and suspiciousness, and proving Speech: Patient's speech is nonpressured. Monotone. Mood/Affect: Patient reports their mood is "the same", affect is congruent and constricted Suicidality/Homicidality: Patient denies having any homicidal ideation intent or plan. Denies any suicidal ideations intent or plan Perceptions: Patient denies any visual hallucinations and denies any auditory hallucinations Though content/process: Patient is perseverating on discharge, minimizing his symptoms. Less paranoid today. More logical. Memory and concentration: AOX3, grossly intact for the purposes of this session Judgment and insight: poor Assessment: Psychosis unspecified, rule out secondary to cannabis abuse Cannabis use disorder Nicotine dependence Plan: -Patient continues to meet criteria for inpatient psychiatric admission for symptom stabilization and safety. Patient has not signed adult voluntary form and medication consent and was placed in patient's chart. -Medications: Will increase Prolixin 2 mg twice a day for psychosis. Continue with melatonin to 10 mg daily at bedtime for insomnia. Continue with Zoloft 50 mg daily for mood/anxiety. Switch Benadryl to scheduled 25 mg daily at bedtime for insomnia. -When necessary Ativan and Haldol for agitation/aggression. -NRT - nicotine patch -SW on board for discharge planning. Encouraged the patient to participate in milieu. Patient signed deferral with commonwealth attorney on 09/24/2020. If patient continues to be noncompliant with treatment then will need to file demand for hearing.
[2020-09-27] MEDS: diphenhydrAMINE 25 MG CAP PO SCH (20:12)
[2020-09-27] MEDS: MELATONIN 5 MG TABLET PO SCH (20:13)
[2020-09-28] MEDS: SERTRALINE 50 MG TAB PO SCH (08:04)
[2020-09-28] MEDS: NICOTINE 21MG/24HR PATCH TRANSDERM SCH (08:04)
[2020-09-28] MEDS: BACITRACIN OINT 1 EACH PACKET TOPICAL SCH ×4 (08:04→20:40)
--- NOTE | 2020-09-28 09:34 | P.PN ---
Progress Note - Text Progress Note Date: 09/28/20 Interval History: Patient was seen wandering the hallways this morning in his bed and was direct able and agreeable to speak with automobile and property underwriter in the office. Patient continues to have a blunted affect today for this has been improving. Patient had mild improvement in terms of his thought process and thought content. He continues to display poor insight and judgment. He states that he has been taking his medications and denies any complaints overnight. He claims that he does not know how he slept last night according to nurse report he was able to sleep approximately 5 hours. He continues to focus on discharge. She asked automobile and property underwriter if he can look on the computer to check if he has a daughter not. Patient appears to be mildly less bizarre today. At this time patient denies any suicidal or homical ideations, intent or plan. Patient denies any auditory, visual hallucinations. Patient took his medications yesterday and this morning and denies any side effects except for sedation. Mental Status Exam: General Appearance: Patient appears to be wellbuilt, stated age is alert, childlike, improving. Patient appears to have mildly improving hygiene and grooming, mildly improving. Long cheney and hair. Behavior: Patient is seated without any agitated behavior. Paranoia and suspiciousness, mildly improving Speech: Patient's speech is nonpressured. Monotone. Mood/Affect: Patient reports their mood is "ok", affect is congruent and constricted Suicidality/Homicidality: Patient denies having any homicidal ideation intent or plan. Denies any suicidal ideations intent or plan Perceptions: Patient denies any visual hallucinations and denies any auditory hallucinations Though content/process: Patient is perseverating on discharge, minimizing his symptoms. Less paranoid today. More logical. Memory and concentration: AOX3, grossly intact for the purposes of this session Judgment and insight: poor, improving mildly Assessment: Psychosis unspecified, rule out secondary to cannabis abuse Cannabis use disorder Nicotine dependence Plan: -Patient continues to meet criteria for inpatient psychiatric admission for symptom stabilization and safety. Patient has not signed adult voluntary form and medication consent and was placed in patient's chart. -Medications: Will increase Prolixin 2.5 mg twice a day for psychosis. Continue with melatonin to 10 mg daily at bedtime for insomnia. Continue with Zoloft 50 mg daily for mood/anxiety. Continue with Benadryl to scheduled 25 mg daily at bedtime for insomnia. -When necessary Ativan and Haldol for agitation/aggression. -NRT - nicotine patch -SW on board for discharge planning. Encouraged the patient to participate in milieu. Patient signed deferral with managing attorney on 09/24/2020. If patient continues to be noncompliant with treatment then will need to file demand for hearing.
[2020-09-28] MEDS: LORazepam 1 MG TAB PO PRN (15:51)
[2020-09-28] MEDS: diphenhydrAMINE 25 MG CAP PO SCH (20:17)
[2020-09-28] MEDS: MELATONIN 5 MG TABLET PO SCH (20:17)
[2020-09-29] MEDS: ACETAMINOPHEN TAB 325 MG TAB PO PRN ×2 (06:55→11:04)
[2020-09-29] MEDS: NICOTINE 21MG/24HR PATCH TRANSDERM SCH (07:55)
[2020-09-29] MEDS: BACITRACIN OINT 1 EACH PACKET TOPICAL SCH ×4 (07:55→21:43)
[2020-09-29] MEDS: SERTRALINE 50 MG TAB PO SCH (07:56)
[2020-09-29] MEDS ORDERED: SERTRALINE 50 MG TAB PO STA (11:33)
--- NOTE | 2020-09-29 11:52 | P.PN ---
Progress Note - Text Progress Note Date: 09/29/20 Interval History: Patient was seen wandering the hallways this morning in his bed and was direct able and agreeable to speak with production underwriter in the office. Patient continues to have a blunted affect today. Patient had mild improvement in terms of his thought process and thought content however he continues to be focused on discharge and states that "I miss my family". Denies to act childlike in some regards during conversation. He continues to display poor insight and judgment. He states that he has been taking his medications however today states that "I don't feel right". He asked more questions about his medications which were answered and patient described what seems to be a need for more pacing and anxiety. He claims that he did not sleep well last night. He continues to focus on discharge. Patient appears to be mildly less bizarre today. At this time patient denies any suicidal or homical ideations, intent or plan. Patient denies any auditory, visual hallucinations. Patient did admit to ongoing depression and anxiety. Mental Status Exam: General Appearance: Patient appears to be wellbuilt, stated age is alert, childlike, improving. Patient appears to have mildly improving hygiene and grooming, mildly improving. Long cheney and hair. Behavior: Patient is seated without any agitated behavior. Childlike at times. Speech: Patient's speech is nonpressured. Monotone. Mood/Affect: Patient reports their mood is "i dont feel right", affect is congruent and blunted Suicidality/Homicidality: Patient denies having any homicidal ideation intent or plan. Denies any suicidal ideations intent or plan Perceptions: Patient denies any visual hallucinations and denies any auditory hallucinations Though content/process: Patient is perseverating on discharge, minimizing his symptoms. Less paranoid today. More logical. Memory and concentration: AOX3, grossly intact for the purposes of this session Judgment and insight: poor, improving mildly Assessment: Psychosis unspecified, rule out secondary to cannabis abuse Cannabis use disorder Nicotine dependence Plan: -Patient continues to meet criteria for inpatient psychiatric admission for symptom stabilization and safety. Patient has not signed adult voluntary form and medication consent and was placed in patient's chart. -Medications: Continue with Prolixin 2.5 mg twice a day for psychosis. Continue with melatonin to 10 mg daily at bedtime for insomnia. Increased Zoloft 100 mg daily for mood/anxiety. Continue with Benadryl to scheduled 25 mg daily at bedtime for insomnia. Added propranolol 20 mg twice a day for akathisia/restlessness. -When necessary Ativan and Haldol for agitation/aggression. -NRT - nicotine patch -SW on board for discharge planning. Encouraged the patient to participate in milieu. Patient signed deferral with patent attorney on 09/24/2020. If patient continues to be noncompliant with treatment then will need to file demand for hearing. Likely discharge in 2-3 days.
[2020-09-29] MEDS: PROPRANOLOL 20 MG TAB PO SCH ×2 (12:02→21:42)
[2020-09-29] MEDS: LORazepam 1 MG TAB PO PRN (16:21)
[2020-09-29] MEDS: diphenhydrAMINE 25 MG CAP PO SCH (21:42)
[2020-09-29] MEDS: MELATONIN 5 MG TABLET PO SCH (21:42)
[2020-09-30 06:56] VITALS: RESP 16
[2020-09-30] MEDS: NICOTINE 21MG/24HR PATCH TRANSDERM SCH (08:05)
[2020-09-30] MEDS: BACITRACIN OINT 1 EACH PACKET TOPICAL SCH ×4 (08:06→20:58)
[2020-09-30] MEDS: PROPRANOLOL 20 MG TAB PO SCH ×2 (08:07→21:14)
[2020-09-30] MEDS: SERTRALINE 100 MG TAB PO SCH (08:07)
[2020-09-30 08:20] LABS: Basophils # (A) 0.1 k/uL (0-0.2); Basophils % (A) 1 %; Eosinophils # (A) 0.2 k/uL (0-0.7); Eosinophils % (A) 2 %; HCT 50.4 % (39.0-53.0); HGB 17.2 gm/dL (13.0-17.5); Lymphocytes # (A) 1.4 k/uL (1.0-4.8); Lymphocytes % (A) 15 %; MCH 31.4 pg (25.0-35.0); MCHC 34.2 g/dL (31.0-37.0); MCV 91.7 fL (80.0-100.0); Mean Platelet Volume 9.6; Monocytes # (A) 0.7 k/uL (0-1.0); Monocytes % (A) 7 %; Neutrophils # (A) 6.8 k/uL (1.3-7.7); Neutrophils % (A) 74 %; Platelet Count 227 k/uL (150-450); RDW 11.8 % (11.5-15.5); WBC 9.3 k/uL (3.8-10.6)
[2020-09-30 08:29] LABS: ALT 93 U/L (4-49); AST 52 U/L (17-59); African American GFR (CKD) >90 (>60 ml/min/1.73 sqM); Albumin 4.5 g/dL (3.5-5.0); Alkaline Phosphatase 67 U/L (38-126); Anion Gap 7 mmol/L; Blood Urea Nitrogen 12 mg/dL (9-20); Calcium 9.7 mg/dL (8.4-10.2); Carbon Dioxide 28 mmol/L (22-30); Chloride 101 mmol/L (98-107); Glucose 94 mg/dL (74-99); Non-African American GFR(CKD) >90 (>60 ml/min/1.73 sqM); Potassium 4.4 mmol/L (3.5-5.1); Sodium 136 mmol/L (137-145); Total Bilirubin 0.8 mg/dL (0.2-1.3); Total Protein 7.4 g/dL (6.3-8.2)
--- NOTE | 2020-09-30 09:58 | P.PN ---
Progress Note - Text Progress Note Date: 09/30/20 Interval History: Patient was seen wandering the hallways this morning and was adamant to speak with the financial underwriter as soon as financial underwriter walked into the office this morning. Patient continues to have a constricted affect today. He continues to be focusing on discharge and told rather several times that he misses his family. He states that he has been talking to his mother. He continues to have poor insight as to why he is in the hospital and states that "was it because I was arguing at home". He claims that his mood has been improving and feels better since yesterday in terms of his anxiety. He feels less need to pace in the hallways. He claims that he has been going to groups however is not able to elaborate much on what he is doing in groups. Patient is less bizarre to thought content today and his thought process is more goal oriented. Continues to act childlike in some regards during conversation. He states that he is continuing to take his medications and denies any issues with him. He claims that he did slept better last night. At this time patient denies any suicidal or homical ideations, intent or plan. Patient denies any auditory, visual hallucinations. Mental Status Exam: General Appearance: Patient appears to be wellbuilt, stated age is alert, childlike, improving. Patient appears to have mildly improving hygiene and grooming, mildly improving. Long cheney and hair. Behavior: Patient is seated without any agitated behavior. Childlike at times. Speech: Patient's speech is nonpressured. Monotone. Mood/Affect: Patient reports their mood is "a bit better", affect is congruent and constricted Suicidality/Homicidality: Patient denies having any homicidal ideation intent or plan. Denies any suicidal ideations intent or plan Perceptions: Patient denies any visual hallucinations and denies any auditory hallucinations Though content/process: Patient is perseverating on discharge. Less paranoid about staff and other patients, improving. More logical. Memory and concentration: AOX3, grossly intact for the purposes of this session Judgment and insight: poor, improving mildly Assessment: Psychosis unspecified, rule out secondary to cannabis abuse Cannabis use disorder Nicotine dependence Plan: -Patient continues to meet criteria for inpatient psychiatric admission for symptom stabilization and safety. Patient has not signed adult voluntary form and medication consent and was placed in patient's chart. -Medications: Continue with Prolixin 2.5 mg twice a day for psychosis. Continue with melatonin to 10 mg daily at bedtime for insomnia. Continue with Zoloft 100 mg daily for mood/anxiety. Continue with Benadryl to scheduled 25 mg daily at bedtime for insomnia. Continue with propranolol 20 mg twice a day for akathisia/restlessness. -When necessary Ativan and Haldol for agitation/aggression. -NRT - nicotine patch -SW on board for discharge planning. Encouraged the patient to participate in milieu. Patient signed deferral with commonwealth attorney on 09/24/2020. The patient does well overnight then tomorrow morning will likely discharge back home. Today we will ask social work program coordinator to reach out to patient's mother to gather any further information and prepare safety and answer any questions regarding potential discharge tomorrow.
[2020-09-30] MEDS: LORazepam 1 MG TAB PO PRN (16:41)
[2020-09-30] MEDS: diphenhydrAMINE 25 MG CAP PO SCH (21:12)
[2020-09-30] MEDS: MELATONIN 5 MG TABLET PO SCH (21:12)
[2020-10-01 06:36] VITALS: TEMP 98
[2020-10-01] MEDS: NICOTINE 21MG/24HR PATCH TRANSDERM SCH (08:04)
[2020-10-01] MEDS: SERTRALINE 100 MG TAB PO SCH (08:05)
[2020-10-01] MEDS: PROPRANOLOL 20 MG TAB PO SCH (08:05)
[2020-10-01] MEDS: BACITRACIN OINT 1 EACH PACKET TOPICAL SCH (08:07)
[2020-10-01 08:10] VITALS: BP 147/96; PULSE 86
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
== END 2020-10-01 12:34 | disposition home or self-care (01) | DRG 885 ==
LOC: EC 14:55 → 3MHU 19:35
PROVIDERS: ADMIT Psychiatry & Neurology Psychiatry; ATTEND Psychiatry & Neurology Psychiatry
DX: F29 Unspecified psychosis not due to a substance or known physiological condition (principal); R45.851 Suicidal ideations; L03.115 Cellulitis of right lower limb; F12.10 Cannabis abuse, uncomplicated; F32.9 Major depressive disorder, single episode, unspecified; F41.9 Anxiety disorder, unspecified; Z20.828 Contact with and (suspected) exposure to other viral communicable diseases; G47.00 Insomnia, unspecified; T36.96XA Underdosing of unspecified systemic antibiotic, initial encounter; Z91.128 Patient's intentional underdosing of medication regimen for other reason; Z91.19 Patient's noncompliance with other medical treatment and regimen; F17.210 Nicotine dependence, cigarettes, uncomplicated; Z71.6 Tobacco abuse counseling; Z56.0 Unemployment, unspecified
CPT/HCPCS: 36415; 71046; 80053; 80061; 80306; 81003; 82075; 83036; 83615; 83735; 84443; 85025; 86140; 87635; 99285

== ENCOUNTER 2021-12-16 15:15 | Emergency (ER) | payer OTHER ==
[2021-12-16] MEDS ORDERED: DIPH,PERTUS(ACELL)TETVAC-LF 0.5 ML VIAL IM ONE (15:27)
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
[2021-12-16 15:41] VITALS: RESP 16; TEMP 97.8
[2021-12-16 16:08] LABS: Basophils % (A) 0 %; Eosinophils # (A) 0.1 k/uL (0-0.7); Eosinophils % (A) 1 %; HCT 51.5 % (39.0-53.0); HGB 17.5 gm/dL (13.0-17.5); Lymphocytes # (A) 1.1 k/uL (1.0-4.8); Lymphocytes % (A) 7 %; Mean Platelet Volume 9.4; Monocytes # (A) 0.8 k/uL (0-1.0); Monocytes % (A) 4 %; Neutrophils # (A) 15.1 k/uL (1.3-7.7); Neutrophils % (A) 88 %; Platelet Count 215 k/uL (150-450); RBC 5.47 m/uL (4.30-5.90); RDW 12.2 % (11.5-15.5); WBC 17.2 k/uL (3.8-10.6)
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
[2021-12-16 16:18] LABS: ALT 42 U/L (4-49); AST 46 U/L (17-59); African American GFR (CKD) >90 (>60 ml/min/1.73 sqM); Albumin 4.6 g/dL (3.5-5.0); Alcohol <10 mg/dL; Alkaline Phosphatase 84 U/L (38-126); Anion Gap 14 mmol/L; Blood Urea Nitrogen 9 mg/dL (9-20); Calcium 9.7 mg/dL (8.4-10.2); Carbon Dioxide 19 mmol/L (22-30); Chloride 104 mmol/L (98-107); Glucose 140 mg/dL (74-99); Non-African American GFR(CKD) >90 (>60 ml/min/1.73 sqM); Sodium 137 mmol/L (137-145); Total Bilirubin 1.1 mg/dL (0.2-1.3)
[2021-12-16 16:20] LABS: INR 0.9 (<1.2); Partial Thromboplastin Time 23.1 sec (22.0-30.0); Prothrombin Time 10.4 sec (9.0-12.0)
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
[2021-12-16 16:36] LABS: Potassium 4.6 mmol/L (3.5-5.1)
--- NOTE | 2021-12-16 16:57 | XR ---
EXAMINATION TYPE: XR chest 1V portable DATE OF EXAM: 12/16/2021 4:51 PM COMPARISON:Chest radiographs from 09/18/2020 TECHNIQUE: XR chest 1V portable Frontal view of the chest. CLINICAL INDICATION:Male, 31 years old with history of Pain; FINDINGS: Lungs/Pleura: Low lung volumes are present. There is no evidence of pleural effusion, focal consolida tion, or pneumothorax. Pulmonary vascularity: Unremarkable. Heart/mediastinum: Cardiomediastinal silhouette is unremarkable. Musculoskeletal: No acute osseous pathology. IMPRESSION: Low lung volumes evidence for acute cardiopulmonary disease process.
[2021-12-16] MEDS ORDERED: KETOROLAC 15 MG/ML 1 ML VIAL IVP STA (18:06)
[2021-12-16 18:26] VITALS: BP 116/87; PULSE 84
[2021-12-16 18:26] LABS: Amphetamine Screen,Urine Not Detected (NotDetected); Barbiturate Screen,Urine Not Detected (NotDetected); Benzodiazepines Screen,Urine Not Detected (NotDetected); Cocaine Screen,Urine Not Detected (NotDetected); Methadone Screen, Urine Not Detected (NotDetected); Opiate Screen,Urine Not Detected (NotDetected); Oxycodone Screen, Urine Not Detected (NotDetected); Phencyclidine Screen,Urine Not Detected (NotDetected); Tricyclic Antidepressant,Urine Not Detected (NotDetected); Urn Cannabinoid Scrn Detected (NotDetected)
== END 2021-12-16 18:32 | disposition home or self-care (01) ==
LOC: EC 15:15
DX: S06.0X9A Concussion with loss of consciousness of unspecified duration, initial encounter (principal); S01.01XA Laceration without foreign body of scalp, initial encounter; S20.319A Abrasion of unspecified front wall of thorax, initial encounter; F17.200 Nicotine dependence, unspecified, uncomplicated; F12.90 Cannabis use, unspecified, uncomplicated; Z79.899 Other long term (current) drug therapy; Y04.0XXA Assault by unarmed brawl or fight, initial encounter
CPT/HCPCS: 36415; 80053; 85025; 85610; 85730; 80306; 71045; 72125; 70486; 70450; 90715; 12001; 90471; 99284; 96374; G0480; J1885; 80320

== ENCOUNTER 2024-05-09 08:35 | Inpatient (IN) | payer MEDICAID, OTHER ==
--- NOTE | 2024-05-09 09:07 | ED ---
General Adult HPI - General Chief complaint: Psychiatric Symptoms Stated complaint: Mental Health Time Seen by Provider: 05/09/24 08:54 Source: patient, RN notes reviewed, old records reviewed Limitations: no limitations, altered mental status - History of Present Illness Initial comments: 33-year-old male presenting for mental health evaluation. Patient [facility] local [facility]. Patient is acutely psychotic, paranoid, hyperverbal. There is a petition for mental health evaluation. Patient has no specific physical complaints. - Related Data Home Medications Medication Instructions Recorded Confirmed Cholecalciferol [Vitamin D3 (125 125 mcg PO DAILY 12/16/21 12/16/21 Mcg = 5000 Iu)] buPROPion HCL [Wellbutrin XL] 150 mg PO DAILY 12/16/21 12/16/21 haloperidoL [Haldol] 5 mg PO HS 12/16/21 12/16/21 traZODone HCL [Desyrel] 50 mg PO HS 12/16/21 12/16/21 Previous Rx's Medication Instructions Recorded RX: Ofloxacin 0.3% Otic Soln 5 drops LEFT EAR BID #5 ml 12/16/21 [Floxin 0.3% Otic Soln] Allergies Allergy/AdvReac Type Severity Reaction Status Date / Time No Known Allergies Allergy Verified 05/09/24 08:50 Review of Systems ROS Statement: Those systems with pertinent positive or pertinent negative responses have been documented in the HPI. ROS Other: All systems not noted in ROS Statement are negative. Past Medical History Additional Past Medical History / Comment(s): heart murmur History of Any Multi-Drug Resistant Organisms: None Reported Past Surgical History: No Surgical Hx Reported Past Psychological History: No Psychological Hx Reported Smoking Status: Current every day smoker Past Alcohol Use History: Occasional Past Drug Use History: Marijuana General Exam Limitations: no limitations General appearance: alert, anxious Head exam: Present: atraumatic, normocephalic Eye exam: Present: normal appearance, PERRL ENT exam: Present: normal exam Neck exam: Present: normal inspection. Absent: tenderness, meningismus Respiratory exam: Present: normal lung sounds bilaterally. Absent: respiratory distress, wheezes Cardiovascular Exam: Present: regular rate, normal rhythm GI/Abdominal exam: Present: soft. Absent: distended, tenderness, guarding Neurological exam: Present: alert. Absent: motor sensory deficit Psychiatric exam: Present: anxious, suicidal ideation, other (Paranoid, delusional) Skin exam: Present: warm, dry, intact Course Vital Signs 05/09/24 08:45 Temperature 98.7 F Pulse Rate 85 Respiratory 16 Rate Blood Pressure 147/96 O2 Sat by Pulse 98 Oximetry Medical Decision Making - Medical Decision Making Was pt. sent in by a medical professional or institution ([facility] [employer], DISTRIBUTION CENTER MANAGER, urgent care, hospital, or [place] health [place] facility...) When possible be specific @ -No Did you speak to anyone other than the patient for history (EMS, parent, family, police, friend...)? What history was obtained from this source @ -No Did you review nursing and triage notes (agree or disagree)? Why? @ -I reviewed and agree with nursing and triage notes Were old charts reviewed (outside hosp., previous admission, EMS record, old EKG, old radiological studies, urgent care reports/EKG's, [place] health care facility records)? Report findings @ -No old charts were reviewed Differential Mental Health Depression, anxiety, bipolar, psychosis, schizophrenia, borderline personality, situational depression, adjustment disorder, behavioral disorder, brain tumor, malingering, substance abuse, encephalopathy, medication reaction, dementia, hypothyroidism, degenerative neurologic disorder, lupus.... This is not meant to be all-inclusive list] EKG interpreted by me (3pts min.). @ -As above X-rays interpreted by me (1pt min.). @ -None done CT interpreted by me (1pt min.). @ -None done U/S interpreted by me (1pt. min.). @ -None done What testing was considered but not performed or refused? (CT, X-rays, U/S, labs)? Why? @ -None What meds were considered but not given or refused? Why? @ -None Did you discuss the management of the patient with other professionals (professionals i.e. [facility], DISTRIBUTION CENTER MANAGER, lab, RT, psych nurse, social professionals, corporate travel counselor, teacher, veterinary medical officer, major case detective)? Give summary @ -No Was smoking cessation discussed for >3mins.? @ -No Was critical care preformed (if so, how long)? @ -No Were there social determinants of health that impacted care today? How? (Homelessness, low income, unemployed, alcoholism, drug addiction, tr ansportation, low edu. Level, literacy, decrease access to med. care, fdc, rehab)? @ -No Was there de-escalation of care discussed even if they declined (Discuss DNR or withdrawal of care, Hospice)? DNR status @ -No What co-morbidities impacted this encounter? (DM, HTN, Smoking, COPD, CAD, Cancer, CVA, ARF, Chemo, Hep., AIDS, mental health diagnosis, sleep apnea, morbid obesity)? @ -None Was patient admitted / discharged? Hospital course, mention meds given and route, prescriptions, significant lab abnormalities, going to OR and other pertinent info. @ -Patient was medically cleared and evaluated by EPS. Arabi to require inpatient psychiatric care. I do agree with this assessment. Undiagnosed new problem with uncertain prognosis? @ -No Drug Therapy requiring intensive monitoring for toxicity (Heparin, Nitro, Insulin, Cardizem)? @ -No Were any procedures done? @ -No Diagnosis/symptom? @Acute psychosis, suicidal ideation Acute, or Chronic, or Acute on Chronic? @Acute Uncomplicated (without systemic symptoms) or Complicated (systemic symptoms)? @ -Default Side effects of treatment? @ -No Exacerbation, Progression, or Severe Exacerbation? @ -No Poses a threat to life or bodily function? How? (Chest pain, [place], [place], pneumonia, PE, COPD, DKA, ARF, appy, cholecystitis, CVA, Diverticulitis, Homicidal, Suicidal, threat to staff... and all critical care pts) @yes, self-harm Disposition Clinical Impression: Depression, Acute psychosis Disposition: ADMITTED IP TO THIS [facility] Condition: Stable Is patient prescribed a controlled substance at d/c from ED?: No Referrals: None,Stated [Primary Care Provider] - 1-2 days Time of Disposition: 09:55
[2024-05-09] MEDS: LORazepam 1 MG TAB PO STA (10:04)
[2024-05-09 11:28] LABS: Appearance,Urine Clear (Clear); Bilirubin,Urine Negative (Negative); Blood,Urine Negative (Negative); Color,Urine Colorless; Glucose,Urine (UA) Negative (Negative); Ketones,Urine 1+ (Negative); Leukocyte Esterase,Urine Negative (Negative); Nitrite,Urine Negative (Negative); PH, Urine 5.5 (5.0-8.0); Protein,Urine Negative (Negative); Specific Gravity,Urine 1.009 (1.001-1.035); Urobilinogen,Urine <2.0 mg/dL (<2.0)
[2024-05-09] MEDS ORDERED: MAG HYDROX/AL HYDROX/SIMETH 355 ML BOTTLE PO PRN (15:20)
[2024-05-09] MEDS ORDERED: MAGNESIUM HYDROXIDE 2,400 MG/30 ML CUP PO PRN (15:20)
[2024-05-09] MEDS ORDERED: LORazepam 2 MG/ML INJ IM PRN (15:27)
[2024-05-09 22:01] LABS: Urine Alcohol Negative (Negative); Urine Barbiturate Negative (Negative); Urine Cocaine Negative (Negative); Urine Methadone Negative (Negative); Urine Opiates Negative (Negative); Urine Phencyclidine Negative (Negative)
[2024-05-09] MEDS: NICOTINE 14MG/24HR PATCH TRANSDERM SCH (22:41)
[2024-05-09] MEDS: LORazepam 1 MG TAB PO PRN (23:01)
[2024-05-09] MEDS: haloperidoL 5 MG TAB PO PRN (23:01)
--- NOTE | 2024-05-10 01:49 | P.CONS ---
History of Present Illness - Reason for Consult Consult date: 05/10/24 - History of Present Illness The patient is a 33-year-old male with PMH of marijuana abuse who had presented to the emergency [facility]. The patient reported chronic lower back pain, slightly worse from baseline, for which he requested a muscle relaxant. He denied any additional complaints. He does report recreational marijuana use but states that [facility] the [facility] for parole violation. He denied experiencing chest discomfort, shortness breath, fever, chills, cough, nausea, vomiting, abdominal pain, diarrhea. Does also report recreational tobacco use when he was not jailed. Denies history of alcohol use. Review of systems: Pertinent positives and negatives as discussed in HPI, a complete review of systems was performed and all other systems are negative. Physical examination: General: non toxic, no distress, appears at stated age, obese Derm: no unusual rashes/lesions, no unusual ecchymoses, warm, dry Head: atraumatic, normocephalic, symmetric Eyes: EOMI, no lid lag, anicteric sclera ENT: Nose and ears atraumatic, no thrush, no pharyngeal erythema Neck: trachea midline, supple Mouth: no lip lesion, mucus membranes moist Cardiovascular: S1S2 reg, no murmur, no edema Lungs: CTA bilateral, no rhonchi, no rales , no accessory muscle use Abdominal: soft, nontender to palpation, no guarding Ext: no gross muscle atrophy, no contractures, Neuro: No gross focal neuro deficits noted Psych: Alert, oriented, appropriate affect Assessment: Acute on chronic low back pain Marijuana abuse Psychosis Imaging: None performed Data Review: Urine toxicology positive for cannabinoids with UA positive for 1+ ketones with COVID-19 testing negative Plan: Flexeril as prescribed Defer management of psychosis to primary psychiatry service Advised on the importance of cessation from marijuana use Thank you for allowing us to participate in the care of this patient. We will follow peripherally. Do not hesitate to contact us with questions. Someone can be reached from the [facility] hospitalist group at all hours of the day at [phone]. Past Medical History Additional Past Medical History / Comment(s): heart murmur History of Any Multi-Drug Resistant Organisms: None Reported Past Surgical History: No Surgical Hx Reported Past Anesthesia/Blood Transfusion Reactions: Unable to Obtain Past Psychological History: No Psychological Hx Reported Smoking Status: Current every day smoker Past Alcohol Use History: Occasional Past Drug Use History: Marijuana Medications and Allergies Home Medications Medication Instructions Recorded Confirmed Type No Known Home Medications 05/09/24 05/09/24 History Allergies Allergy/AdvReac Type Severity Reaction Status Date / Time No Known Allergies Allergy Verified 05/09/24 20:32 Physical Exam Vitals: Vital Signs Temp Pulse Pulse Resp BP BP BP 05/09/24 20:34 97.9 F 62 14 128/85 05/09/24 17:10 103 H 128/85 05/09/24 16:37 97.5 F L 75 18 135/79 05/09/24 14:18 97.6 F 62 18 102/67 05/09/24 08:45 98.7 F 85 16 147/96 Pulse Ox 05/09/24 20:34 96 05/09/24 17:10 96 05/09/24 16:37 99 05/09/24 14:18 96 05/09/24 08:45 98 Intake and Output 05/09/24 05/09/24 05/10/24 14:59 22:59 06:59 Other: Weight 102.058 kg 100.788 kg Results Labs: Abnormal Lab Results - Last 24 Hours (Table) 05/09/24 05/09/24 Range/Units 11:23 11:23 Urine Ketones 1+ H (Negative) U Cannabinoids Screen Positive A (Negative)
[2024-05-10] MEDS: CYCLOBENZAPRINE 5 MG TAB PO STA (08:23)
[2024-05-10] MEDS ORDERED: NICOTINE 14MG/24HR PATCH TRANSDERM SCH (09:00)
[2024-05-10] MEDS ORDERED: diphenhydrAMINE 50 MG/ML 1 ML VIAL IM PRN (09:51)
--- NOTE | 2024-05-10 11:02 | P.HP ---
Psychiatric H&P - . H&P Date: 05/10/24 History & Physical: Allergies Allergy/AdvReac Type Severity Reaction Status Date / Time No Known Allergies Allergy Verified 05/09/24 20:32 Vital Signs Temp 97.9 F 05/09/24 20:34 Pulse 62 05/09/24 20:34 Resp 14 05/09/24 20:34 BP 128/85 05/09/24 20:34 Pulse Ox 96 05/09/24 20:34 FiO2 Intake & Output 05/09/24 05/10/24 05/10/24 18:59 06:59 18:59 Weight 100.788 kg 100.788 kg Laboratory Last Values Urine Color Colorless 05/09/24 11:23 Urine Appearance Clear (Clear) 05/09/24 11:23 Urine pH 5.5 (5.0-8.0) 05/09/24 11:23 Ur Specific [place] 1.009 (1.001-1.035) 05/09/24 11:23 Urine Protein Negative (Negative) 05/09/24 11:23 Urine Glucose (UA) Negative (Negative) 05/09/24 11:23 Urine Ketones 1+ (Negative) H 05/09/24 11:23 Urine Blood Negative (Negative) 05/09/24 11:23 Urine Nitrite Negative (Negative) 05/09/24 11:23 Urine Bilirubin Negative (Negative) 05/09/24 11:23 Urine Urobilinogen <2.0 mg/dL (<2.0) 05/09/24 11:23 Ur Leukocyte Esterase Negative (Negative) 05/09/24 11:23 Urine Opiates Screen Negative (Negative) 05/09/24 11:23 Urine Methadone Screen Negative (Negative) 05/09/24 11:23 Ur Propoxyphene Screen Negative (Negative) 05/09/24 11:23 Urine Barbiturates Negative (Negative) 05/09/24 11:23 Ur Phencyclidine Scrn Negative (Negative) 05/09/24 11:23 Ur Amphetamine Screen Negative (Negative) 05/09/24 11:23 U Benzodiazepines Scrn Negative (Negative) 05/09/24 11:23 Urine Cocaine Screen Negative (Negative) 05/09/24 11:23 U Cannabinoids Screen Positive (Negative) A 05/09/24 11:23 Urine Alcohol Negative (Negative) 05/09/24 11:23 U Creatinine Drug Scrn 103.0 mg/dL (>=20.0) 05/09/24 11:23 SARS-CoV-2 (PCR) Not Detected (Not Detectd) 05/09/24 14:15 05/10/24 10:54 IDENTIFYING DATA: Patient is a 33-year-old male, coming from [facility], he has 1 daughter HPI: Patient was seen initially by social worker school for EPS evaluation and as per note "Clinician met braulio Kenny in ER 12 to eval. Cl sitting on floor of ER 12 in shackles brought in by Prison officers on petition. Cl agitated, shouting at times, flight of ideas, oppositional, paranoid, pressured speech, delusional. Cl petitioned by [employer] matthew stating: " inmate experiencing manic episode, denying need for tx, has not slept in 3-4 days, not eating, delusional, believes he is God." Cl remains disorganized, tangential, loose associations, paranoid, with bizarre behaviors. Judgement/insight/impulse control poor, loss of conceptualization and abstraction, labile, minimizing" patient presented to the hospital yesterday, he was petitioned and according to petition by social worker school in halfway stated that patient is "experiencing a manic episode denies need for treatment and has not slept in 3 to 4 days, not eating, delusional, believing he is God". Patient was seen wandering the hallways this morning appears to be disheveled. He appeared to be responding to internal stimuli, looking around the hallway in the room, talking to himself. Patient did have outbursts, yelling at times to himself. He was agreeable to speak to marketing copywriter today in his room. He was swearing at times he had . Patient denies any suicidal or homicidadisorganized thought process, loose associations and illogical thinking. He told marketing copywriter that he had a "heavy foot" is the reason why he is in the hospital. He spoke about "habitual reasons" and was focused on getting a muscle relaxer. He made several odd comments and had difficulty with attention span. He did report paranoia however did not give a clear reason as to who is paranoid about. States that his sleep is poor, appetite is poor. At this time he is denying any suicidal or homicidal ideations intent or plan. At this time patient denies any auditory or visual hallucinations. He claims that he is using marijuana alcohol and cigarettes however did not specify how much. Patient was an unreliable poor historian. PAST PSYCHIATRIC HISTORY: Patient has a history of psychosis, cannabis use. Patient was previously on Prolixin, melatonin Zoloft and Benadryl and also Inderal. Patient was last psychiatrically hospitalized on the mental health unit in August 2020. Patient denies any psychiatric outpatient follow-up. Patient denies any history of suicide attempts in the past. PMH: as per ER note ALLERGIES: as per EMR CHEMICAL DEPENDENCY HISTORY: as per HPI FAMILY PSYCHIATRIC/SUBSTANCE USE HISTORY: Denies SOCIAL HISTORY: Patient was a poor historian of his social history, he did report that he has 1 daughter and he was coming from the [facility] halfway . Apparently he is being charged for fraud and also assault and battery. MENTAL STATUS EXAM: General Appearance: Patient appears to be well-built, disheveled appearance and hair, unshaven, stated age is alert, bizarre and responding to internal stimuli. Patient appears to have poor hygiene and grooming. Behavior: Patient is seated without any agitated behavior. Responding to internal stimuli, bizarre Speech: Patient's speech is fluent and nonpressured. [place] Mood/Affect: Patient reports their mood is "not good", affect is congruent and constricted. Suicidality/Homicidality: Patient denies having any homicidal ideation intent or plan. Denies any suicidal ideations intent or plan Perceptions: Patient denies any visual hallucinations and denies any auditory hallucinations Though content/process: Loose associations, illogical. Disorganized thought process. Memory and concentration: AOX2-3, grossly intact for the purposes of this session. Cannot spell "WORLD" backwards Judgment and insight: Poor/impulsive STRENGTHS/WEAKNESSES: strength is that patient is resilient. Weakness is that patient has poor judgment and is impulsive, has legal history INTELLECT: Average IMPRESSIONS: Psychosis unspecified History of cannabis use disorder Nicotine dependence Legal problems PLAN: -Patient is admitted under involuntary status to MHU for stabilization of psychiatric symptoms and safety. Patient has not signed adult voluntary form and medication consent and is placed in patient's chart. A second certification was completed and along with petition will be filed for court. -Medications : Will start on Invega 3 mg twice daily for psychosis/mood stabilization. Plan will be to transition patient onto long-acting injection to help ensure compliance. Benadryl as needed for sleep. -Ativan and Haldol and Benadryl PRN for agitation/aggression -Patient was informed of the risks, benefits and side effects of the medication -Internal Medicine consult to perform medical evaluation and physical. -NRT -nicotine patch -SW on board for discharge planning. Encourage patient to participate in groups to work on coping skills. Will await deferral and court date. 05/10/24 10:59
[2024-05-10] MEDS: PALIPERIDONE 3 MG TAB.ER.24 PO SCH (11:36)
[2024-05-10 11:58] LABS: ALT 44 U/L (4-49); AST 44 U/L (17-59); African American GFR (CKD) >90 (>60 ml/min/1.73 sqM); Albumin 4.2 g/dL (3.5-5.0); Alkaline Phosphatase 66 U/L (38-126); Anion Gap 9 mmol/L; Bilirubin, Delta 0.3 mg/dL (0.0-0.2); Bilirubin,Unconjugated 0.3 mg/dL (0.0-1.1); Blood Urea Nitrogen 11 mg/dL (9-20); Calcium 9.6 mg/dL (8.4-10.2); Carbon Dioxide 24 mmol/L (22-30); Chloride 105 mmol/L (98-107); Glucose 80 mg/dL (74-99); Non-African American GFR(CKD) >90 (>60 ml/min/1.73 sqM); Potassium 4.2 mmol/L (3.5-5.1); Sodium 138 mmol/L (137-145); Total Bilirubin 0.6 mg/dL (0.2-1.3); Total Protein 6.8 g/dL (6.3-8.2)
[2024-05-10 12:02] LABS: Basophils % (A) 0 %; Eosinophils # (A) 0.1 k/uL (0-0.7); Eosinophils % (A) 2 %; HCT 46.4 % (39.0-53.0); HGB 15.1 gm/dL (13.0-17.5); Lymphocytes # (A) 1.3 k/uL (1.0-4.8); Lymphocytes % (A) 16 %; MCH 30.8 pg (25.0-35.0); MCHC 32.4 g/dL (31.0-37.0); MCV 94.9 fL (80.0-100.0); Mean Platelet Volume 10.8; Monocytes # (A) 0.8 k/uL (0-1.0); Monocytes % (A) 9 %; Neutrophils % (A) 72 %; Platelet Count 172 k/uL (150-450); RBC 4.89 m/uL (4.30-5.90); RDW 12.1 % (11.5-15.5); WBC 8.4 k/uL (3.8-10.6)
[2024-05-10 15:54] LABS: Chol/HDL Ratio 2.31 Ratio; LDL Cholesterol,Calculated 64.5 mg/dL (0.0-131.0); VLDL Calculation 12.56 mg/dL (5.00-40.00)
[2024-05-10] MEDS: NICOTINE GUM (POLACRILEX) 2 MG GUM BUCCAL PRN (16:53)
--- NOTE | 2024-05-11 10:59 | P.PN ---
Progress Note - Text Progress Note Date: 05/11/24 Interval History: Patient was seen wandering the hallways and was directable and agreeable to sp rosemary with physician underwriter at the bedside. Initially, the patient sat on his bed, and when asked how he was feeling, he just sat on his bed, looking down, picking at his comb, then started combing his hair. It was not until physician underwriter asked why he has not taken medication that the patient stated "I just need a muscle relaxer at bed time, that's it". Patient became irritated, and spoke in a hostile tone. Patient has been observed by multiple staff members to be banging the phone mortician supplies sales representative against the wall, and the base of the phone. He would not answer if he slept well at night, or answer questions regarding his appetite. At this time patient denies any suicidal or homicidal ideations, intent or plan. Patient denies any auditory, visual hallucinations and denies any paranoia or delusions. Patient has been refusing his meds. MENTAL STATUS EXAM: General Appearance: Patient appears to be well-built, disheveled appearance and hair, unshaven, stated age is alert, bizarre and responding to internal stimuli. Patient appears to have poor hygiene and grooming. Behavior: Patient is seated without any agitated behavior. Responding to internal stimuli, bizarre Speech: Patient's speech is fluent and nonpressured. [place] Mood/Affect: Patient reports their mood is "not good", affect is congruent and constricted. Suicidality/Homicidality: Patient denies having any homicidal ideation intent or plan. Denies any suicidal ideations intent or plan Perceptions: Patient denies any visual hallucinations and denies any auditory hallucinations Though content/process: Loose associations, illogical. Disorganized thought process. Memory and concentration: AOX2-3, grossly intact for the purposes of this session. Judgment and insight: Poor/impulsive IMPRESSIONS: Psychosis unspecified History of cannabis use disorder Nicotine dependence Legal problems PLAN: -Patient is admitted under involuntary status to MHU for stabilization of psychiatric symptoms and safety. Patient has not signed adult voluntary form and medication consent and is placed in patient's chart. A second certification was completed and along with petition will be filed for court. -Medications : change invega to haldol PO 5 mg bid for psychosis. Plan will be to transition patient onto long-acting injection to help ensure compliance. Benadryl as needed for sleep. -Ativan and Haldol and Benadryl PRN for agitation/aggression -NRT -nicotine patch -SW on board for discharge planning. Encourage patient to participate in groups to work on coping skills. court scheduled for 05/17, awaiting deferral. 05/10/24 10:59
[2024-05-11] MEDS: haloperidoL 5 MG TAB PO SCH (12:23)
[2024-05-12] MEDS: LORazepam 1 MG TAB PO PRN (09:02)
--- NOTE | 2024-05-12 11:56 | P.PN ---
Progress Note - Text Progress Note Date: 05/12/24 Interval History: Patient was seen wandering the hallways and was directable and agreeable to sp eak with screenplay writer at the bedside. The patient stated that his medications are making him too relaxed. Patient was initially sleeping when screenplay writer entered his room, but was easily awoken. Patient states that he is too tired. Earlier today, patient was speaking aggressively to staff, and acting agitation. The patient states that he slept alright last night. The patient is not attending groups, but is not secluding himself to his room. He is visible on the unit, usually making howling sounds, and acting bizarrely. The patient claims to have a fair appetite. At this time patient denies any suicidal or homicidal ideations, intent or plan. Patient denies any auditory, visual hallucinations and denies any paranoia or delusions. Patient has been compliant with medication, and denying any side effects. MENTAL STATUS EXAM: General Appearance: Patient appears to be well-built, disheveled appearance and hair, unshaven, stated age is alert, bizarre and responding to internal stimuli. Patient appears to have poor hygiene and grooming. Behavior: Patient is seated without any agitated behavior. Responding to internal stimuli, bizarre Speech: Patient's speech is fluent and nonpressured. [place] Mood/Affect: Patient reports their mood is "not good", affect is congruent and constricted. Suicidality/Homicidality: Patient denies having any homicidal ideation intent or plan. Denies any suicidal ideations intent or plan Perceptions: Patient denies any visual hallucinations and denies any auditory hallucinations Though content/process: Loose associations, illogical. Disorganized thought process. Memory and concentration: AOX2-3, grossly intact for the purposes of this session. Judgment and insight: Poor/impulsive IMPRESSIONS: Psychosis unspecified History of cannabis use disorder Nicotine dependence Legal problems PLAN: -Patient is admitted under involuntary status to MHU for stabilization of psychiatric symptoms and safety. Patient has not signed adult voluntary form and medication consent and is placed in patient's chart. A second certification was completed and along with petition will be filed for court. -Medications : change haldol PO 10 mg qhs + 2.5mg daily for psychosis. Plan will be to transition patient onto long-acting injection to help ensure compliance. Oswaldl as needed for sleep. -Ativan and Haldol and Benadryl PRN for agitation/aggression -NRT -nicotine patch -SW on board for discharge planning. Encourage patient to participate in groups to work on coping skills. court scheduled for 05/17, awaiting deferral.
[2024-05-12] MEDS: ARTIFICIAL TEARS-HYPROMELLOSE DROPS 15 ML BTL BOTH EYES PRN (12:49)
[2024-05-12] MEDS: BENZTROPINE MESYLATE 1 MG TAB PO PRN (19:35)
[2024-05-12] MEDS: haloperidoL 5 MG TAB PO SCH (21:55)
[2024-05-13] MEDS: haloperidoL 5 MG TAB PO SCH (06:58)
--- NOTE | 2024-05-13 16:07 | P.PN ---
Progress Note - Text Interval History: Per staff, patient has been loud, slamming doors, asking for d/c. He was seen trying to elope the unit. During interview, patient appeared dysthymic as he stated he wanted to see his daughter. He asked to meet in the office, and global technical writer refused due to the agitation over the past 24 hours. Patient then no longer wanted to talk. MENTAL STATUS EXAM: General Appearance: Patient appears to be well-built, disheveled appearance and hair, unshaven, stated age is alert, bizarre and responding to internal stimuli. Patient appears to have poor hygiene and grooming. Behavior: uncooperative Speech: Patient's speech is fluent and nonpressured. [place] Mood/Affect: Patient reports their mood is "not good", affect is congruent and constricted. Suicidality/Homicidality: Could not assess as interview was terminated Perceptions: RIS Though content/process: intact, no delusions elicited Memory and concentration: grossly intact for the purposes of this session. Judgment and insight: Poor/impulsive IMPRESSIONS: Psychosis unspecified History of cannabis use disorder Nicotine dependence Legal problems PLAN: increase haldol to 5 mg daily and 10 mg qhs, continue plan otherwise
[2024-05-14] MEDS: haloperidoL 5 MG TAB PO SCH (07:41)
--- NOTE | 2024-05-14 14:36 | P.PN ---
Progress Note - Text Interval history: Patient was seen [wandering the hallways] and was directable and agreeable to speak with commercial real estate underwriter. asking for discharge. Also states that he does not want Haldol.. At this time patient denies any suicidal or homicidal ideations intent or plan. Denies any Auditory or visual hallucinations. Patient denies any side effects from the medications and has been compliant with meds. Mental status exam: General Appearance: [Patient appears to be stated age is alert, directable, and cooperative.] Behavior: [No agitated behavior. Speech: Patient's speech is fluent and nonpressured. Mood/Affect: Mood is improving mildly, affect is congruent and constricted. Suicidality/Homicidality: Patient denies having any suicidal or homicidal ideation intent or plan. Perceptions: Patient denies any auditory or visual hallucinations. Though content/process: [There is no evidence of any delusional thought content and thought process is linear and goal-directed.] Memory and concentration: AOX3, grossly intact for the purposes of this session Judgment and insight: poor Assessment/Plan: Continue with current diagnosis. Patient continues to meet criteria for inpatient psychiatric admission for symptom stabilization and safety.[Patient will be maintained on current psychotropic medication regimen.] Monitor for medication compliance and for any psychotropic medication side effects. Will continue to monitor ongoing response to treatment. Encouraged participation in milieu.
[2024-05-14] MEDS: IBUPROFEN 600 MG TAB PO PRN (22:23)
--- NOTE | 2024-05-15 11:29 | P.PN ---
Progress Note - Text Progress Note Date: 05/15/24 Interval History: Patient was seen in his room and was directable and agreeable to speak with wr iter at the bedside. The patient stated that he is not as good as the day before. He is rambling about the staff needing to remind him to cut his hair. Then he stated, Can I talk to my daughter now, or are you just playing a game? You don't know me from my mother, and you need to get me off of Haldol." He then states, "I'm not charlottes gaming, quit spinning me. I am a dream catcher". Patient continues with loose associations, and he is tangential. He is refusing medications, a demand will be filed by social work today. The patient claims to have a fair appetite. At this time patient denies any suicidal or homicidal ideations, intent or plan. Patient denies any auditory, visual hallucinations and denies any paranoia or delusions. Patient has not been compliant with medication, a demand will be filed today, 05/15. MENTAL STATUS EXAM: General Appearance: Patient appears to be well-built, disheveled appearance and hair, unshaven, stated age is alert, bizarre and responding to internal stimuli. Patient appears to have poor hygiene and grooming. Behavior: Patient is seated without any agitated behavior. Responding to internal stimuli, bizarre Speech: Patient's speech is fluent and nonpressured. [place], rambling, tangential Mood/Affect: Patient reports their mood is "not as goodas yesterday", affect is congruent and constricted. Suicidality/Homicidality: Patient denies having any homicidal ideation intent or plan. Denies any suicidal ideations intent or plan Perceptions: Patient denies any visual hallucinations and denies any auditory hallucinations Though content/process: Loose associations, illogical. Disorganized thought process. Memory and concentration: AOX2-3, grossly intact for the purposes of this session. Judgment and insight: Poor/impulsive IMPRESSIONS: Psychosis unspecified History of cannabis use disorder Nicotine dependence Legal problems PLAN: -Patient is admitted under involuntary status to [facility] for stabilization of psychiatric symptoms and safety. Patient had signed a deferral, however, has not taken medications, a demand will be filed today. -Medications : haldol PO 10 mg qhs + 2.5mg daily for psychosis. Plan will be to transition patient onto long-acting injection to help ensure compliance. Benadryl as needed for sleep. -Ativan and Haldol and Benadryl PRN for agitation/aggression -NRT -nicotine patch -SW on board for discharge planning. Encourage patient to participate in groups to work on coping skills. Social work to file a demand today as patient refused medications today
--- NOTE | 2024-05-16 11:22 | P.PN ---
Progress Note - Text Progress Note Date: 05/16/24 Interval History: Patient was seen wandering the hallways today, he was agreeable to speak in his room again. He appeared to have improvement in his hygiene and grooming today. He showed director underwriter sales different pictures that he was working on and colorings during activity group. He continues to have fairly limited insight and judgment. He has been refusing his morning dose of Haldol. When asked about it he believes that he does not need the medications. He was attempting more to be cooperative during conversation. Claims that he was able to sleep fairly last night. The patient claims to have a fair appetite. At this time patient denies any suicidal or homicidal ideations, intent or plan. Patient denies any auditory, visual hallucinations and denies any paranoia or delusions. Patient has not been compliant with medication MENTAL STATUS EXAM: General Appearance: Patient appears to be well-built, shaven, stated age is alert, bizarre and responding to internal stimuli. Patient appears to have improving hygiene and grooming. Behavior: Patient is seated without any agitated behavior. Responding to internal stimuli, bizarre, improving mildly Speech: Patient's speech is fluent and nonpressured. [place] Mood/Affect: Patient reports their mood is "ok", affect is congruent and con stricted. Suicidality/Homicidality: Patient denies having any homicidal ideation intent or plan. Denies any suicidal ideations intent or plan Perceptions: Patient denies any visual hallucinations and denies any auditory hallucinations Though content/process: Loose associations, illogical. Disorganized thought process. Improving mildly, fairly concrete Memory and concentration: AOX2-3, grossly intact for the purposes of this session. Judgment and insight: Poor/impulsive, improving mildly IMPRESSIONS: Psychosis unspecified History of cannabis use disorder Nicotine dependence Legal problems PLAN: -Patient is admitted under involuntary status to [facility] for stabilization of psychiatric symptoms and safety. Patient had signed a deferral, however, has not taken medications, a demand was filed. Will await court hearing. -Medications : haldol PO 10 mg qhs + 2.5mg daily for psychosis. Plan will be to transition patient onto long-acting injection to help ensure compliance. Benadryl as needed for sleep. -Ativan and Haldol and Benadryl PRN for agitation/aggression -NRT -nicotine patch -SW on board for discharge planning. Encourage patient to participate in groups to work on coping skills. Demand filed awaiting hearing date. Patient refusing medication.
[2024-05-16] MEDS: diphenhydrAMINE 50 MG CAP PO PRN (21:01)
[2024-05-17] MEDS: ACETAMINOPHEN TAB 325 MG TAB PO PRN (07:32)
[2024-05-17] MEDS ORDERED: HALOPERIDOL LACTATE 5 MG/ML 1 ML VIAL IM PRN (09:52)
[2024-05-17] MEDS: SERTRALINE 50 MG TAB PO SCH (09:59)
--- NOTE | 2024-05-17 10:15 | P.PN ---
Progress Note - Text Progress Note Date: 05/17/24 Interval History: Patient was seen in his room today, he was agreeable to speak in his room. Stella olson signed a waive and stip yesterday, putting him on a full court order. He did take his medication last night and this morning. He stated he does not want to take this medication, because he is trying to get home to his daughter. Patient initially was calm, then he stated he is trying to keep his memories. He then became upset, sobbing uncontrollably. When bond underwriter attempted to ask him to repeat what he said, patient became angry, and yelled "Get out! You fucking idiot!!". He continues to have fairly limited insight and judgment. At this time patient denies any suicidal or homicidal ideations, intent or plan. Patient denies any auditory, visual hallucinations and denies any paranoia or delusions. Patient has not been compliant with medication MENTAL STATUS EXAM: General Appearance: Patient appears to be well-built, shaven, stated age is alert, bizarre and responding to internal stimuli. Patient appears to have improving hygiene and grooming. Behavior: Patient is seated without any agitated behavior. Responding to internal stimuli, bizarre, sad and angry Speech: Patient's speech is fluent and nonpressured. [place], yelling. Mood/Affect: Patient reports their mood is "sad", affect is congruent and constricted. Suicidality/Homicidality: Patient denies having any homicidal ideation intent or plan. Denies any suicidal ideations intent or plan Perceptions: Patient denies any visual hallucinations and denies any auditory hallucinations Though content/process: Loose associations, illogical. Disorganized thought process. fairly concrete Memory and concentration: AOX2-3, grossly intact for the purposes of this session. Judgment and insight: Poor/impulsive IMPRESSIONS: Psychosis unspecified History of cannabis use disorder Nicotine dependence Legal problems PLAN: -Patient is admitted under involuntary status to [facility] for stabilization of psychiatric symptoms and safety. Patient had signed a deferral, however, has not taken medications, patient ended up signiong a consent for a mental health order on 05/16. -Medications : haldol PO 10 mg qhs + 5mg daily for psychosis. Plan will be to transition patient onto long-acting injection to help ensure compliance. Benadryl as needed for sleep. If patient refused PO medication, give Haldol IM as patient is on a court order. Add Zoloft 50mg po daily for mood/anxiety -Ativan and Haldol and Benadryl PRN for agitation/aggression -NRT - nicotine patch -SW on board for discharge planning. Encourage patient to participate in groups to work on coping skills. Patient signed a waive and stip on 05/16, now on a full court order.
--- NOTE | 2024-05-18 11:16 | P.PN ---
Progress Note - Text Progress Note Date: 05/18/24 Interval History: Patient was seen in his room today, he was agreeable to speak in his room. Stella olson is currently on a full court order. He has been taking his medication. Patient stated that he is feeling dizzy. He is very difficult to redirect. He showed underwriter mortgage loan photos of his daughter, and stated, "you killed some of her family with covid 19". He also randomly said 40cents. continues to be bizzare and intrusive with underwriter mortgage loan. He claims to have night terrors. He continues to have fairly limited insight and judgment. He remains bizarre, making howling sounds in the hallways. He also stated he has a lot of depression At this time patient denies any suicidal or homicidal ideations, intent or plan. Patient denies any auditory, visual hallucinations and denies any paranoia or delusions. Patient has not been compliant with medication MENTAL STATUS EXAM: General Appearance: Patient appears to be well-built, shaven, stated age is alert, bizarre and responding to internal stimuli. Patient appears to have improving hygiene and grooming. Behavior: Patient is seated without any agitated behavior. Responding to internal stimuli, bizarre, intrusive Speech: Patient's speech is fluent and nonpressured. [place], yelling. Mood/Affect: Patient reports their mood is "depressed", affect is congruent and constricted. Suicidality/Homicidality: Patient denies having any homicidal ideation intent or plan. Denies any suicidal ideations intent or plan Perceptions: Patient denies any visual hallucinations and denies any auditory hallucinations Though content/process: Loose associations, illogical. Disorganized thought process. fairly concrete Memory and concentration: AOX2-3, grossly intact for the purposes of this session. Judgment and insight: Poor/impulsive IMPRESSIONS: Psychosis unspecified History of cannabis use disorder Nicotine dependence Legal problems PLAN: -Patient is admitted under involuntary status to [facility] for stabilization of psychiatric symptoms and safety. Patient ended up signiong a consent for a mental health order on 05/16. -Medications : haldol PO 10 mg qhs + 5mg daily for psychosis. Plan will be to transition patient onto long-acting injection to help ensure compliance. Benadryl as needed for sleep. If patient refused PO medication, give Haldol IM as patient is on a court order. increase Zoloft 100mg po daily for mood/anxiety add cogentin 1mg bid scheduled for EPS symptoms. -Ativan and Haldol and Benadryl PRN for agitation/aggression -NRT - nicotine patch -SW on board for discharge planning. Encourage patient to participate in groups to work on coping skills. Patient signed a waive and stip on 05/16, now on a full court order.
[2024-05-18 16:34] VITALS: BMI 29.2
[2024-05-18] MEDS: BENZTROPINE MESYLATE 1 MG TAB PO SCH (20:28)
[2024-05-19] MEDS: SERTRALINE 100 MG TAB PO SCH (10:40)
[2024-05-19] MEDS ORDERED: flUPHENAZine 2.5 MG/ML (MDV) 10 ML VIAL IM PRN (10:53)
--- NOTE | 2024-05-19 10:58 | P.PN ---
Progress Note - Text Progress Note Date: 05/19/24 Interval History: Patient was seen in his room today, he was agreeable to speak in his room. Stella olson is currently on a full court order. He has been taking his medication. Patient stated that he is good today. The patient continues to be bizarre and intrusive with procedure writer. He claims that he don't like haldol, when asked why, patient became irritated, and said "I don't read labels like that!". He continues to have fairly limited insight and judgment. He claims to have slept well last night, and reports a fair appetite. At this time patient denies any suicidal or homicidal ideations, intent or plan. Patient denies any auditory, visual hallucinations and denies any paranoia or delusions. Patient has not been compliant with medication. MENTAL STATUS EXAM: General Appearance: Patient appears to be well-built, shaven, stated age is alert, bizarre and responding to internal stimuli. Patient appears to have improving hygiene and grooming. Behavior: Patient is seated without any agitated behavior. Responding to internal stimuli, bizarre, intrusive Speech: Patient's speech is fluent and nonpressured. [place], yelling. Mood/Affect: Patient reports their mood is "depressed", affect is congruent and constricted. Suicidality/Homicidality: Patient denies having any homicidal ideation intent or plan. Denies any suicidal ideations intent or plan Perceptions: Patient denies any visual hallucinations and denies any auditory hallucinations Though content/process: Loose associations, illogical. Disorganized thought process. fairly concrete Memory and concentration: AOX2-3, grossly intact for the purposes of this session. Judgment and insight: Poor/impulsive IMPRESSIONS: Psychosis unspecified History of cannabis use disorder Nicotine dependence Legal problems PLAN: -Patient is admitted under involuntary status to [facility] for stabilization of psychiatric symptoms and safety. Patient ended up signiong a consent for a mental health order on 05/16. -Medications : d/c haldol Po and switch with prolixin 5mg po bid for psychosis, titrate up as tolerated over the weekend. Plan will be to transition patient onto long-acting injection to help ensure compliance. Benadryl as needed for sleep. If patient refused PO medication, give Prolixin IM as patient is on a court order. Zoloft 100mg po daily for mood/anxiety, cogentin 1mg bid scheduled for EPS symptoms. added depakote 500 mg qhs for mood stabilization -Ativan and Haldol and Benadryl PRN for agitation/aggression -NRT - nicotine patch -SW on board for discharge planning. Encourage patient to participate in groups to work on coping skills. Patient signed a waive and stip on 05/16, now on a full court order. patient is a [facility] hold.
[2024-05-19] MEDS: DIVALPROEX ER 500 MG TAB.ER.24H PO SCH (19:57)
--- NOTE | 2024-05-20 13:25 | P.PN ---
Progress Note - Text Progress Note Date: 05/20/24 Interval history: Patient was seen wandering the hallways and was directable and agreeable to speak with job specification writer. Patient makes numerous disorganized statements throughout interview. He is also observed to be responding to internal stimuli on the milieu. He states that his mood is "better ". He describes that he would like to see his daughter again. He endorses sleeping well and eating well. He is agreeable with increasing the Prolixin today. He denies any other concerns. At this time patient denies any suicidal or homicidal ideations intent or plan. Denies any Auditory or visual hallucinations. Patient denies any side effects from the medications and has been compliant with meds. Patient's HR elevated but no cardiac symptoms including chest pain, shortness of breath, palpitations, and diaphoresis. Vital Signs Temp 97.6 F 05/20/24 11:46 Pulse 114 H 05/20/24 11:46 Resp 19 05/20/24 11:46 BP 114/78 05/20/24 11:46 Pulse Ox 97 05/20/24 11:46 FiO2 Mental status exam: General Appearance: Patient appears to be stated age is alert, directable, and cooperative. Behavior: No agitated behavior. Patient is calm and directable. Responding to internal stimuli Speech: Patient's speech is fluent and nonpressured. Mood/Affect: Mood is improving mildly, affect is congruent and constricted. Suicidality/Homicidality: Patient denies having any suicidal or homicidal ideation intent or plan. Perceptions: Patient denies any auditory or visual hallucinations. However, noted to be responding to internal stimuli Though content/process: Disorganized though process with unrelated statements Memory and concentration: AOX3, grossly intact for the purposes of this session Judgment and insight: improving mildly Assessment/Plan: Continue with current diagnosis. Patient continues to meet criteria for inpatient psychiatric admission for symptom stabilization and safety. Patient will be maintained on current psychotropic medication regimen. Increase Prolixin to 5 mg every morning and 7.5 mg daily at bedtime for psychosis. Remeasure vitals signs and will order EKG if tachycardia persists. Monitor for medication compliance and for any psychotropic medication side effects. Will continue to monitor ongoing response to treatment. Encouraged participation in [employer].
[2024-05-21] MEDS: HALOPERIDOL LACTATE 5 MG/ML 1 ML VIAL IM PRN (08:45)
[2024-05-21] MEDS: LORazepam 2 MG/ML INJ IM PRN (08:46)
--- NOTE | 2024-05-21 09:23 | P.MHFACE ---
Face to Face Restrain/Seclus - Evaluation Patient's Immediate Situation: Endangers self safety, Endangers others' safety, Endangers staff safety, Violent behavior Patient's Immediate Situation - Comment: Patient was agitated, screaming, yelling profanities at nursing staff. He had accepted Ativan 1 mg and Prolixin 5 mg daily PO this morning. He was pacing the halls, aggressively, screaming and threatening violence. He would not respond to verbal redirection despite several attempts. He proceeded to attempt to kick an exit door several times with his legs. Patient was becoming increasingly agitated. Code taylor was called and patient's agitation necessitated a physical hold to prevent harm to self or others and chemical restraints with Haldol 5 mg IM and Ativan 2 mg IM. Patient would not accept PO meds. He was escorted to the seclusion room and placed in 4 point restraints given that he continued to be physically threatening and screaming threats loudly. Patient's Reaction to the Intervention - Comment: Patient has calmed down and says he has not been agitated. Attempted to discuss the concerns staff had with his threats and physical aggression. He is paranoid. He is in no acute distress, denies any pain, does not display any abrasions or bruises. Patient's Medical & Behavioral Condition: Awake, Alert, Agitated Patient's Medical & Behavioral Condition - Comment: Patient is becoming less agitated after the intervention but continues to be paranoid. He believes he has an extra eye to be able to see things. Able to move all 4 extremities. Alert and oriented x 4. No discoloration of skin notable, especially near restraints. Need to Continue or Terminate Restraint or Seclusion: Continue Need to Continue or Terminate Restraint/Seclusion - Comment: May discontinue as he demonstrates less agitation and is able to maintain calmness without threatening self or other's safety. Face to Face Eval of Restraint Date: 05/21/24 Face to Face Eval of Restraint Time: 09:18
[2024-05-21] MEDS: LORazepam 2 MG/ML INJ IM ONE (09:35)
--- NOTE | 2024-05-21 14:19 | P.PN ---
Progress Note - Text Progress Note Date: 05/21/24 Interval history: Patient was seen wandering on the milieu and was seen bedside this morning. Patient makes bizarre statements. He was noted to be responding to internal stimuli today while pacing on the milieu. Prior to his episode of agitation, patient was also intrusive into others' space, continues to loudly ask questions despite being answered, and was disinhibited. He continues to display poor understanding for need for treatment. He has been compliant with by mouth meds. He reports having slept well last night and has good appetite today. He denies any visual hallucinations. He denies any suicidal ideation or homicidal ideation. He says "I wouldn't actually hurt anyone." Patient was agitated today while discussing medications with nursing staff. Despite verbal redirection, he escalated to threatening violence, was screaming profanities, and kicking leonard and door. Nadia vazquez was called and he was given PRN meds for agitation and placed in 4 point restraints. Mental status exam: General Appearance: Patient appears to be stated age is alert, directable, and cooperative. Behavior: Agitated earlier today. Responding to internal stimuli Speech: Patient's speech is fluent and nonpressured. Mood/Affect: Mood is irritable, affect is congruent and constricted. Suicidality/Homicidality: Patient denies having any suicidal or homicidal ideation intent or plan. Perceptions: Patient denies any auditory or visual hallucinations. However, noted to be responding to internal stimuli Though content/process: Disorganized though process with unrelated statements Memory and concentration: AOX3, grossly intact for the purposes of this session Judgment and insight: improving mildly Assessment/Plan: Continue with current diagnosis. Patient continues to meet criteria for inpatient psychiatric admission for symptom stabilization and safety. Patient will be maintained on current psychotropic medication regimen. Monitor for medication compliance and for any psychotropic medication side effects. Will continue to monitor ongoing response to treatment. Encouraged participation in [facility].
--- NOTE | 2024-05-22 11:12 | P.PN ---
Progress Note - Text Progress Note Date: 05/22/24 Interval History: Patient was seen wandering the hallways today and was agreeable to speak to wr iter. Patient does have an irritable tone, he did not answer many questions, if he did they were bizarre answers. He was argumentative at times. Focused on discharge. He claims that he went into restraints over the weekend because "I could not get fresh air". He continues to have very poor insight into his condition, poor judgment as well, he is impulsive and intrusive still. When asked about his sleep he Reef raises question back at engineering writer. At this time he is denying any anxiety, denying any auditory or visual hallucinations, denying any suicidal homicidal ideations intent or plan. Patient has been taking medications as prescribed. MENTAL STATUS EXAM: General Appearance: Patient appears to be well-built, shaven, stated age is alert, bizarre and responding to internal stimuli. Patient appears to have improving hygiene and grooming. Behavior: Patient is seated without any agitated behavior. Responding to internal stimuli, bizarre, intrusive, argumentative and demanding Speech: Patient's speech is fluent and nonpressured. [place], yelling. Irritable tone Mood/Affect: Patient reports their mood is "not good", affect is congruent Suicidality/Homicidality: Patient denies having any homicidal ideation intent or plan. Denies any suicidal ideations intent or plan Perceptions: Patient denies any visual hallucinations and denies any auditory hallucinations Though content/process: Loose associations, illogical. Disorganized thought process. fairly concrete Memory and concentration: AOX2-3, grossly intact for the purposes of this session. Judgment and insight: Poor/impulsive IMPRESSIONS: Psychosis unspecified History of cannabis use disorder Nicotine dependence Legal problems PLAN: -Patient is admitted under involuntary status to [facility] for stabilization of psychiatric symptoms and safety. Patient ended up signiong a consent for a mental health order on 05/16. -Medications : replace prolixin with risperdal 2 mg bid for psychosis, titrate up as tolerated. Plan will be to transition patient onto long-acting injection to help ensure compliance. Benadryl as needed for sleep. If patient refused PO medication, give Prolixin IM as patient is on a court order. Zoloft 100mg po daily for mood/anxiety, cogentin 1mg bid scheduled for EPS symptoms. increase depakote 750 mg qhs for mood stabilization -Ativan and Haldol and Benadryl PRN for agitation/aggression -NRT - nicotine patch -SW on board for discharge planning. Encourage patient to participate in groups to work on coping skills. Patient signed a waive and stip on 05/16, now on a full court order. patient is a skilled nursing hold.
[2024-05-22] MEDS: risperiDONE ODT 2 MG TAB PO SCH (11:43)
[2024-05-22] MEDS: DIVALPROEX ER 250 MG TAB.ER.24H PO SCH (20:13)
--- NOTE | 2024-05-23 11:50 | P.PN ---
Progress Note - Text Progress Note Date: 05/23/24 Interval History: Patient was seen in his room today and was agreeable to speak to casualty underwriter at the bedside. Patient states that he is feeling a little dizzy today. Patients mood is much better today. Patient is not irritable, and very cooperative with casualty underwriter today. He stated that he would rather go back to residential than to stay here. Dry Room Operator spoke with patient about transitioning onto a MÉNDEZ prior to release, patient agreeable. He was concerned about his mother being able to come to the hospital and fiber picker his belongings, due to him being a residential hold. Assured patient there would be no issue with his mom coming to fiber picker his possessions. At this time he is denying any anxiety, denying any auditory or visual hallucinations, denying any suicidal homicidal ideations intent or plan. Patient has been taking medications as prescribed. MENTAL STATUS EXAM: General Appearance: Patient appears to be well-built, shaven, stated age is alert, Cooperative. Patient appears to have improving hygiene and grooming. Behavior: Patient is seated without any agitated behavior. less intrusive, and not irritable today Speech: Patient's speech is fluent and nonpressured. Mood/Affect: Patient reports their mood is "good", affect is congruent mildly improving Suicidality/Homicidality: Patient denies having any homicidal ideation intent or plan. Denies any suicidal ideations intent or plan Perceptions: Patient denies any visual hallucinations and denies any auditory hallucinations Though content/process: fairly concrete, mildly improving Memory and concentration: AOX2-3, grossly intact for the purposes of this session. Judgment and insight: Poor/impulsive, mildly improving IMPRESSIONS: Psychosis unspecified History of cannabis use disorder Nicotine dependence Legal problems PLAN: -Patient is admitted under involuntary status to MHU for stabilization of psychiatric symptoms and safety. Patient ended up signiong a consent for a mental health order on 05/16. -Medications : change risperdal 1 mg daily + 3mg qhs for psychosis, titrate up as tolerated. Plan will be to transition patient onto long-acting injection to help ensure compliance. Benadryl as needed for sleep. If patient refused PO medication, give Prolixin IM as patient is on a court order. Zoloft 100mg po daily for mood/anxiety, cogentin 1mg bid scheduled for EPS symptoms. increase depakote 1000 mg qhs for mood stabilization Plan to give persaris , if patient is tolerating PO risperdal well. -Ativan and Haldol and Benadryl PRN for agitation/aggression -NRT - nicotine patch -SW on board for discharge planning. Encourage patient to participate in groups to work on coping skills. Patient signed a waive and stip on 05/16, now on a full court order. patient is a residential hold. hopeful for discharge either vs wednesday back to residential.
[2024-05-23] MEDS: DIVALPROEX ER 500 MG TAB.ER.24H PO SCH (21:47)
[2024-05-23] MEDS: risperiDONE ODT 1 MG TAB PO SCH (21:47)
[2024-05-24] MEDS: risperiDONE ODT 1 MG TAB PO SCH (09:03)
--- NOTE | 2024-05-24 14:41 | P.PN ---
Progress Note - Text Progress Note Date: 05/24/24 Interval History: Patient was agreeable to speak to telegraphic typewriter installer via telehealth in cross-coverage for Pedro Nguyễn. Patient is rambling, irritable and easily distractable, frequently changes topic, is restless. He gets up to sit on the floor during assessment, states he wants to pray. He states he practices Jehov[employer], and becomes somewhat confrontational without any intended provocation, "What more do you want? I already took your meds for 14-15 days." She changes topics frequently and asks "I will burn for eternity, what am I? ... The sun... What's a shooting star? It's part of planet that or a odonnell. Our odonnell was already destroyed. Do you believes in aliens?...diamond I do!" He claims he wants to go back to penitentiary. He is labile, changes topics frequently. He is denying any auditory or visual hallucinations. He is denying any suicidal/homicidal ideation, intent or plan. Patient has been taking medications as prescribed. He states "I'm not crazy, I don't need your psychotic medicine." He has grandiose ideations, states "I'm the fucking God", "I'm [place] famous for a reason!" MENTAL STATUS EXAM: General Appearance: Patient appears to be well-nourished adult male, fair hygiene and grooming, dressed in casual attire. Behavior: Patient is irritable, rambling, easily distractable, restless, r equires frequent redirection Speech: Patient's speech is fluent and somewhat pressured. Mood/Affect: Mood is irritable, affect is labile. Suicidality/Homicidality: Patient denies having any homicidal ideation intent or plan. Denies any suicidal ideations intent or plan. Gets upset when asked. Perceptions: Patient denies any visual hallucinations and denies any auditory hallucinations Though content/process: flight of ideas/rambles about irrelevant topics Memory and concentration: Alert and oriented to person, place, time. Judgment and insight: Poor/impulsive IMPRESSIONS: Psychosis unspecified, r/o Schizopaffective disorder bipolar type. History of cannabis use disorder Nicotine dependence Legal problems PLAN: -Patient is admitted under involuntary status to [facility] for stabilization of psychiatric symptoms and safety. Patient ended up signiong a consent for a mental health order on 05/16. -Medications: Increase from Risperdal 1 mg daily + 3mg qhs to 2 mg daily + 3mg qhs for psychosis, titrate up as tolerated. Plan will be to transition patient onto long-acting injection to help ensure compliance. Benadryl as needed for sleep. If patient refused PO medication, give Prolixin IM as patient is on a court order. Zoloft 100mg po daily for mood/anxiety, Cogentin 1mg bid scheduled for EPS symptoms. Continue Depakote 1000 mg qhs for mood stabilization. Plan to transition to Persaris if patient is tolerating PO risperdal well. -Ativan and Haldol and Benadryl PRN for agitation/aggression -NRT - nicotine patch -SW on board for discharge planning. Encourage patient to participate in groups to work on coping skills. Patient signed a waive and stip on 05/16, now on a full court order. Patient is a penitentiary hold and will be discharged back to penitentiary when stable.
[2024-05-25 06:15] VITALS: BP 119/77; PULSE 96; RESP 16; TEMP 98.7
[2024-05-25] MEDS: risperiDONE ODT 2 MG TAB PO SCH ×2 (08:51→21:11)
--- NOTE | 2024-05-25 12:53 | P.PN ---
Progress Note - Text Progress Note Date: 05/25/24 Interval History: Patient was seen in his room today and was agreeable to speak to medical technical writer at the bedside. Patient states that he is feeling "pissed off". He is ruminating on the incident that happened over the weekend when he ended up in the seclusion room in restraints. He states, "I don't need the medications, the medications needs me!" He continues to state that he is just "doing this for my daughter". He talks passionately about this. hygiene and grooming improving. At this time he is denying any anxiety, denying any auditory or visual hallucinations, denying any suicidal homicidal ideations intent or plan. Patient has been taking medications as prescribed. MENTAL STATUS EXAM: General Appearance: Patient appears to be well-built, shaven, stated age is alert, Cooperative. Patient appears to have improving hygiene and grooming. Behavior: Patient is seated without any agitated behavior. less intrusive, and not as irritable today Speech: Patient's speech is fluent and nonpressured. Mood/Affect: Patient reports their mood is "ok", affect is congruent mildly improving Suicidality/Homicidality: Patient denies having any homicidal ideation intent or plan. Denies any suicidal ideations intent or plan Perceptions: Patient denies any visual hallucinations and denies any auditory hallucinations Though content/process: fairly concrete, mildly improving Memory and concentration: AOX2-3, grossly intact for the purposes of this session. Judgment and insight: chronically Poor/impulsive, mildly improving IMPRESSIONS: Psychosis unspecified History of cannabis use disorder Nicotine dependence Legal problems PLAN: -Patient is admitted under involuntary status to MHU for stabilization of psychiatric symptoms and safety. Patient ended up signiong a consent for a mental health order on 05/16. -Medications : 3mg qhs for psychosis, Benadryl as needed for sleep. If patient refused PO medication, give Prolixin IM as patient is on a court order. Add trazodone 100mg qhs for sleep. Zoloft 100mg po daily for mood/anxiety, cogentin 1mg bid scheduled for EPS symptoms. increase depakote 1000 mg qhs + 500mg daily for mood stabilization, Add MÉNDEZ persaris 120mg SQ 4 weeks, first dose today, 05/25, next dose 06/22. add doxipin 20mg qhs prn for sleep. -Ativan and Haldol and Benadryl PRN for agitation/aggression -NRT - nicotine patch -SW on board for discharge planning. Encourage patient to participate in groups to work on coping skills. Patient signed a waive and stip on 05/16, now on a full court order. patient is a retirement hold. hopeful for discharge wednesday back to retirement.
[2024-05-25] MEDS: risperiDONE 120 MG SYR (NO COST) PHARMACY STOCK SQ ONE (14:05)
[2024-05-25] MEDS: diphenhydrAMINE 50 MG CAP PO PRN (14:26)
[2024-05-25] MEDS: DIVALPROEX ER 500 MG TAB.ER.24H PO SCH (14:37)
[2024-05-25] MEDS ORDERED: chlorproMAZINE 25 MG/ML 2 ML AMP IM PRN (15:03)
[2024-05-25] MEDS ORDERED: chlorproMAZINE 25 MG TAB PO PRN (15:03)
[2024-05-25] MEDS: traZODone HCL 100 MG TAB PO SCH (21:11)
[2024-05-25] MEDS: DOXEPIN 10 MG CAP PO PRN (21:58)
--- NOTE | 2024-05-26 10:23 | P.DS ---
Providers Date of admission: 05/09/24 16:10 Expected date of discharge: 05/26/24 Attending physician: Nate Nguyễn MD Consults: 05/09/24 15:20 Consult Physician Routine Consulting Provider: Bebe Physician Consult Reason/Comments: H&P, medical follow up Do you want consulting provider notified?: Yes Primary care physician: Stated None - Discharge Diagnosis(es) (1) Unspecified psychosis Current Visit: No Status: Acute Priority: High (2) Cannabis use disorder Current Visit: Yes Status: Acute Priority: High (3) Legal problem Current Visit: Yes Status: Acute Priority: Medium (4) Nicotine dependence Current Visit: No Status: Acute Priority: Low Hospital Course: Admission HPI: Admission note was completed by policy writer "Patient was seen initially by aids social worker for EPS evaluation and as per note "Clinician met braulio Kenny in ER 12 to eval. Cl sitting on floor of ER 12 in shackles brought in by Senior Living officers on petition. Cl agitated, shouting at times, flight of ideas, oppositional, paranoid, pressured speech, delusional. Cl petitioned by [facility] w pet stating: " inmate experiencing manic episode, denying need for tx, has not slept in 3-4 days, not eating, delusional, believes he is God." Cl remains disorganized, tangential, loose associations, paranoid, with bizarre behaviors. Judgement/insight/impulse control poor, loss of conceptualization and abstraction, labile, minimizing" patient presented to the hospital yesterday, he was petitioned and according to petition by aids social worker in skilled nursing stated that patient is "experiencing a manic episode denies need for treatment and has not slept in 3 to 4 days, not eating, delusional, believing he is God". Patient was seen wandering the hallways this morning appears to be disheveled. He appeared to be responding to internal stimuli, looking around the hallway in the room, talking to himself. Patient did have outbursts, yelling at times to himself. He was agreeable to speak to policy writer today in his room. He was swearing at times he had . Patient denies any suicidal or homicidadisorganized thought process, loose associations and illogical thinking. He told policy writer that he had a "heavy foot" is the reason why he is in the hospital. He spoke about "habitual reasons" and was focused on getting a muscle relaxer. He made several odd comments and had difficulty with attention span. He did report paranoia however did not give a clear reason as to who is paranoid about. States that his sleep is poor, appetite is poor. At this time he is denying any suicidal or homicidal ideations intent or plan. At this time patient denies any auditory or visual hallucinations. He claims that he is using marijuana alcohol and cigarettes however did not specify how much. Patient was an unreliable poor historian." Hospital course: Upon admission to the unit patient was admitted involuntarily on a petition and certificate and a second certificate was completed and faxed with the courts. Patient ended up signing a deferral with his assistant district attorney however patient shortly after refuse medications and a demand for hearing was filed. Patient ended up receiving a mental health court order on 05/16. Patient was initially bizarre and intrusive, disruptive however with time and treatment he eventually got along well with other patients on the unit and followed unit protocol. Patient was compliant with the medications and denied any side effects throughout hospital course. Patient was started on Risperdal and increased to a dose of 5 mg total per day, he was transitioned onto Perseris subcutaneous 120 mg q. monthly, first dose was given on 05/25 next dose will be due on 06/22. Trazodone 100 mg nightly for sleep, Zoloft 100 mg daily for mood/anxiety, Cogentin 1 mg twice daily for EPS symptoms/prophylaxis, Depakote 500 mg daily +1000 mg nightly for mood stabilization/aggression, doxepin 25 mg nightly for sleep. Benadryl 50 mg nightly as needed for insomnia. Patient spoke of his stressors and engaged in therapy both group and individual. Patient was also seen by medical team for history and physical exam. Throughout the course of the hospitalization patient gradually improved with regards to mood, anxiety, intrusiveness, psychosis, sleep and returned back to their baseline level of functioning. On the day of discharge patient denied any suicidal or homicidal ideations intent or plan denied any auditory or visual hallucinations. Patient endorsed wanting to live for his health, daughter and family. The patient denied any access to guns or weapons. Patient denied any paranoia and did not endorse any delusions. Patient does have a significant history of substance abuse and was counseled on abstaining from all substances including alcohol and marijuana. Patient was offered however declined inpatient substance-abuse rehab. Patient elected to do outpatient substance use treatment program through [facility]. Patient was also counseled on the medications and need for regular compliance and was encouraged to follow-up with their outpatient appointment for mental health and also for primary care. Patient will be discharged today back to skilled nursing. He will be following up at [facility] upon his discharge from skilled nursing. Mental status exam: General Appearance: Patient appears to be tall, has a cheney, stated age is alert, pleasant, and cooperative. Patient is in no acute distress and has improved hygiene and grooming Behavior: Patient is calmly seated without any agitated behavior. Attempts to cooperate Speech: Patient's speech is fluent and nonpressured. Mood/Affect: Patient reports their mood is "fine", affect is congruent Suicidality/Homicidality: Patient denies having any suicidal or homicidal ideation intent or plan. Perceptions: Patient denies any auditory or visual hallucinations. Though content/process: There is no evidence of any delusional thought content and thought process is linear and goal-directed. Memory and concentration: AOX3, grossly intact for the purposes of this session. Can spell "WORLD" backwards correctly. Judgment and insight: Chronically poor and impulsive, however has improved with guarded prognosis Impression: Psychosis unspecified, rule out schizophrenia versus schizoaffective disorder History of cannabis use disorder Nicotine dependence Legal problems Plan: -Continue with discharge today as patient has improved and stabilized psychiatrically and is not currently an imminent threat to himself and/or others. Patient will remain at chronically elevated risk for harm to self and/or others due to his impulsivity -Continue medications: Trazodone 100 mg nightly for sleep/mood, Zoloft 100 mg daily for mood/anxiety, Cogentin 1 mg twice daily for EPS prophylaxis/symptoms, Depakote 500 mg daily +1000 mg nightly for mood stabilization/aggression, Perseris 120 mg subcutaneous q. 4 weeks, first dose was given on 05/25, next dose will be due on 06/22 at [facility], doxepin 25 mg nightly for sleep. Benadryl 50 mg nightly as needed for insomnia. -Patient was counseled on the need for medication compliance and appropriate follow-up at mental health and also primary care for medical issues. Patient verbalized understanding and agreed. -Social work to help coordinate patient's discharge today back to skilled nursing. Social work also to arrange for patients follow up appointments with [facility] for psychiatric care along with follow up with primary care provider. -Patient counseled on abstaining from recreational drugs and marijuana and alcohol. Was informed/educated on the adverse effects on their physical and mental health. Patient verbally agreed and understood. -Patient was instructed to return to the hospital or seek immediate medical care if their psychiatric or medical symptoms do worsen or reoccur. Allergies Allergy/AdvReac Type Severity Reaction Status Date / Time No Known Allergies Allergy Verified 05/09/24 20:32 Laboratory Results WBC 8.4 k/uL (3.8-10.6) 05/10/24 10:50 RBC 4.89 m/uL (4.30-5.90) 05/10/24 10:50 Hgb 15.1 gm/dL (13.0-17.5) 05/10/24 10:50 Hct 46.4 % (39.0-53.0) 05/10/24 10:50 MCV 94.9 fL (80.0-100.0) 05/10/24 10:50 MCH 30.8 pg (25.0-35.0) 05/10/24 10:50 MCHC 32.4 g/dL (31.0-37.0) 05/10/24 10:50 RDW 12.1 % (11.5-15.5) 05/10/24 10:50 Plt Count 172 k/uL (150-450) 05/10/24 10:50 MPV 10.8 05/10/24 10:50 Neutrophils % 72 % 05/10/24 10:50 Lymphocytes % 16 % 05/10/24 10:50 Monocytes % 9 % 05/10/24 10:50 Eosinophils % 2 % 05/10/24 10:50 Basophils % 0 % 05/10/24 10:50 Neutrophils # 6.0 k/uL (1.3-7.7) 05/10/24 10:50 Lymphocytes # 1.3 k/uL (1.0-4.8) 05/10/24 10:50 Monocytes # 0.8 k/uL (0-1.0) 05/10/24 10:50 Eosinophils # 0.1 k/uL (0-0.7) 05/10/24 10:50 Basophils # 0.0 k/uL (0-0.2) 05/10/24 10:50 Sodium 138 mmol/L (137-145) 05/10/24 10:50 Potassium 4.2 mmol/L (3.5-5.1) 05/10/24 10:50 Chloride 105 mmol/L (98-107) 05/10/24 10:50 Carbon Dioxide 24 mmol/L (22-30) 05/10/24 10:50 Anion Gap 9 mmol/L 05/10/24 10:50 BUN 11 mg/dL (9-20) 05/10/24 10:50 Creatinine 0.84 mg/dL (0.66-1.25) 05/10/24 10:50 Est GFR (CKD-EPI)AfAm >90 (>60 ml/min/1.73 sqM) 05/10/24 10:50 Est GFR (CKD-EPI)NonAf >90 (>60 ml/min/1.73 sqM) 05/10/24 10:50 Glucose 80 mg/dL (74-99) 05/10/24 10:[address] Glu mg/dL 108 mg/dL 05/10/24 10:50 Hemoglobin A1c 5.4 % (<=6.0) 05/10/24 10:50 Calcium 9.6 mg/dL (8.4-10.2) 05/10/24 10:50 Total Bilirubin 0.6 mg/dL (0.2-1.3) 05/10/24 10:50 Conjugated Bilirubin 0.0 mg/dL (0.0-0.3) 05/10/24 10:50 Unconjugated Bilirubin 0.3 mg/dL (0.0-1.1) 05/10/24 10:50 Delta Bilirubin 0.3 mg/dL (0.0-0.2) H 05/10/24 10:50 AST 44 U/L (17-59) 05/10/24 10:50 ALT 44 U/L (4-49) 05/10/24 10:50 Alkaline Phosphatase 66 U/L (38-126) 05/10/24 10:50 Total Protein 6.8 g/dL (6.3-8.2) 05/10/24 10:50 Albumin 4.2 g/dL (3.5-5.0) 05/10/24 10:50 Triglycerides 62.80 mg/dL (0.00-149.00) 05/10/24 10:50 Cholesterol 136.00 mg/dL (0.00-200.00) 05/10/24 10:50 LDL Cholesterol, Calc 64.5 mg/dL (0.0-131.0) 05/10/24 10:50 VLDL Cholesterol, Calc 12.56 mg/dL (5.00-40.00) 05/10/24 10:50 HDL Cholesterol 58.90 mg/dL (40.00-60.00) 05/10/24 10:50 Cholesterol/HDL Ratio 2.31 Ratio 05/10/24 10:50 TSH 2.370 mIU/L (0.465-4.680) 05/10/24 10:50 Urine Color Colorless 05/09/24 11:23 Urine Appearance Clear (Clear) 05/09/24 11:23 Urine pH 5.5 (5.0-8.0) 05/09/24 11:23 Ur Specific [place] 1.009 (1.001-1.035) 05/09/24 11:23 Urine Protein Negative (Negative) 05/09/24 11:23 Urine Glucose (UA) Negative (Negative) 05/09/24 11:23 Urine Ketones 1+ (Negative) H 05/09/24 11:23 Urine Blood Negative (Negative) 05/09/24 11:23 Urine Nitrite Negative (Negative) 05/09/24 11:23 Urine Bilirubin Negative (Negative) 05/09/24 11:23 Urine Urobilinogen <2.0 mg/dL (<2.0) 05/09/24 11:23 Ur Leukocyte Esterase Negative (Negative) 05/09/24 11:23 Urine Opiates Screen Negative (Negative) 05/09/24 11:23 Urine Methadone Screen Negative (Negative) 05/09/24 11:23 Ur Propoxyphene Screen Negative (Negative) 05/09/24 11:23 Urine Barbiturates Negative (Negative) 05/09/24 11:23 Ur Phencyclidine Scrn Negative (Negative) 05/09/24 11:23 Ur Amphetamine Screen Negative (Negative) 05/09/24 11:23 U Benzodiazepines Scrn Negative (Negative) 05/09/24 11:23 Urine Cocaine Screen Negative (Negative) 05/09/24 11:23 U Cannabinoids Screen Positive (Negative) A 05/09/24 11:23 Urine Alcohol Negative (Negative) 05/09/24 11:23 U Creatinine Drug Scrn 103.0 mg/dL (>=20.0) 05/09/24 11:23 SARS-CoV-2 (PCR) Not Detected (Not Detectd) 05/09/24 14:15 Vital Signs Temp 98.7 F 05/25/24 06:14 Pulse 96 05/25/24 06:14 Resp 16 05/25/24 06:14 BP 119/77 05/25/24 06:14 Pulse Ox 98 05/25/24 06:14 FiO2 Patient Condition at Discharge: Stable Plan - Discharge Summary Discharge Rx Participant: Yes New Discharge Prescriptions: New Artificial Tears-Hypromellose [Artificial Tear Drops] 2 drops BOTH EYES QID PRN #1 ml PRN Reason: Dry Eye(S) Benztropine Mesylate [Cogentin] 1 mg PO BID 30 Days #60 tab Divalproex ER [Depakote ER] 500 mg PO DAILY 30 Days #30 tab Divalproex ER [Depakote ER] 1,000 mg PO HS 30 Days #60 tab traZODone HCL [Desyrel] 100 mg PO HS 30 Days #30 tab Nicotine 14Mg/24Hr Patch [Habitrol] 1 patch TRANSDERM DAILY 14 Days #14 patch Nicotine Gum (Polacrilex) [Nicorette] 2 mg BUCCAL Q4HR PRN 30 Days #180 pieceofgum PRN Reason: Nicotine Cravings Doxepin [SINEquan] 25 mg PO HS 30 Days #30 capsule diphenhydrAMINE [Benadryl] 50 mg PO HS PRN 30 Days #30 cap PRN Reason: Insomnia Sertraline [Zoloft] 100 mg PO DAILY 30 Days #30 tab Discharge Medication List Artificial Tears-Hypromellose [Artificial Tear Drops] 2 drops BOTH EYES QID PRN #1 ml 05/26/24 [Rx] Benztropine Mesylate [Cogentin] 1 mg PO BID 30 Days #60 tab 05/26/24 [Rx] Divalproex ER [Depakote ER] 1,000 mg PO HS 30 Days #60 tab 05/26/24 [Rx] Divalproex ER [Depakote ER] 500 mg PO DAILY 30 Days #30 tab 05/26/24 [Rx] Doxepin [SINEquan] 25 mg PO HS 30 Days #30 capsule 05/26/24 [Rx] Nicotine 14Mg/24Hr Patch [Habitrol] 1 patch TRANSDERM DAILY 14 Days #14 patch 05/26/24 [Rx] Nicotine Gum (Polacrilex) [Nicorette] 2 mg BUCCAL Q4HR PRN 30 Days #180 pieceofgum 05/26/24 [Rx] Sertraline [Zoloft] 100 mg PO DAILY 30 Days #30 tab 05/26/24 [Rx] diphenhydrAMINE [Benadryl] 50 mg PO HS PRN 30 Days #30 cap 05/26/24 [Rx] traZODone HCL [Desyrel] 100 mg PO HS 30 Days #30 tab 05/26/24 [Rx] Follow up Appointment(s)/Referral(s): None,Stated [Primary Care Provider] - 1-2 days Activity/Diet/Wound Care/Special Instructions: Avoid the use of street drugs and alcohol. Take all medications as prescribed. When you are in need of refills on your medications, please contact your outpatient medical provider and/or outpatient psychiatrist. Please go to your scheduled outpatient appointments for aftercare treatment. If symptoms return or become worse, call the crisis line at or and/or visit the nearest emergency room for assistance. National Suicide and Crisis Lifeline - call or text 438. Discharge Disposition: DC/TRANSFER COURT/LAW
== END 2024-05-26 14:06 | DRG 750 ==
LOC: EC 08:35 → 3MHU 16:10
PROVIDERS: ADMIT Psychiatry & Neurology Psychiatry; ATTEND Psychiatry & Neurology Psychiatry
DX: F25.9 Schizoaffective disorder, unspecified (principal); F12.10 Cannabis abuse, uncomplicated; F17.200 Nicotine dependence, unspecified, uncomplicated; F32.A Depression, unspecified; F41.9 Anxiety disorder, unspecified; G47.00 Insomnia, unspecified; R45.1 Restlessness and agitation; M54.50 Low back pain, unspecified; G89.29 Other chronic pain; R45.851 Suicidal ideations; Z65.3 Problems related to other legal circumstances; Z78.1 Physical restraint status; Z79.899 Other long term (current) drug therapy; Z91.148 Patient's other noncompliance with medication regimen for other reason; Z11.52 Encounter for screening for COVID-19
CPT/HCPCS: 80053; 80061; 80306; 81003; 82075; 82248; 83036; 84443; 85025; 87635; 99285